=== PATIENT | female | born 1990 | race Caucasian/White ===

== ENCOUNTER 2016-07-20 21:46 | Inpatient (IN) | payer BC ==
[2016-07-20] MEDS ORDERED: NS 0.9% 1000 ML* 1,000 ML IV ONE (21:52)
[2016-07-20] MEDS ORDERED: Charcoal ACTIVATED* 25 GM/120 ML BTL PO ONE (21:52)
[2016-07-20 22:04] LABS: Hematocrit 40 % (35-47); Hemoglobin 13.1 g/dl (12.0-16.0); Mean Corpuscular HGB Conc 33 g/dl (31-36); Mean Corpuscular Hemoglobin 27 pg (27-31); Mean Corpuscular Volume 84 fL (80-97); Mean Platelet Volume 9 um3 (7.4-10.4); Red Blood Count 4.82 10^6/ul (4.0-5.4); Red Cell Distribution Width 14 % (10.5-15); White Blood Count 9.2 10^3/ul (3.5-10.8)
[2016-07-20 22:05] LABS: Add Diff/Slide Review? Slide Review Added; Comments Flag Yes
--- NOTE | 2016-07-20 22:10 | RAD ---
INDICATION: Overdose COMPARISON: None. TECHNIQUE: Single AP portable view of the chest was obtained. FINDINGS: Image quality is compromised due to the relative inferiority of a portable chest x-ray. The heart and mediastinum exhibit normal size and contour. The lungs are grossly clear. There is no evidence of a large pleural effusion. Visualized bones are normal for the patient's age. IMPRESSION: No radiographic evidence for acute cardiopulmonary abnormality on this portable chest x-ray.
[2016-07-20 22:21] LABS: ALT 9 U/L (7-52); AST 10 U/L (13-39); Albumin 3.8 g/dL (3.2-5.2); Alkaline Phosphatase 115 U/L (34-104); Anion Gap 9 mmol/L (2-11); BUN/Creatinine Ratio 15.4 (8-20); Blood Urea Nitrogen 10 mg/dL (6-24); CO2 Carbon Dioxide 22 mmol/L (22-32); Calcium 9.1 mg/dL (8.6-10.3); Chloride 104 mmol/L (101-111); Creatine Kinase 42 U/L (10-223); EGFR African American 141.7 (>60); EGFR Non-African American 110.2 (>60); Globulin 3.4 g/dL (2-4); Glucose 103 mg/dL (70-100); Potassium 3.2 mmol/L (3.5-5.0); Sodium 135 mmol/L (133-145); Total Protein 7.2 g/dL (6.4-8.9)
--- NOTE | 2016-07-20 22:32 | ED ---
I, Oh,Sorandi, scribed for Olegario Jara MD on 07/20/16 at 2209 . Substance Abuse/Use - HPI Summary HPI Summary: This 26 y/o female presents to ED for OD on approximately 800 mg of trazodone an hour and a half ago. EMT also reports that pt also may have consumed half bottle of wine along with her trazodone. Pt is alert and oriented upon arrival and able to answer oriented questions. Pt states that consumption was intentional and indicates possible SI. Charcoal was ordered immediately upon arrival. - History Of Current Complaint Stated Complaint: OVERDOSE/MHE Hx Obtained From: Patient, EMS Overdose Characteristics: Oral Timing Of Abuse: Binge Use Aggravating Factor(s): Nothing Alleviating Factor(s): Nothing Associated Signs And Symptoms: Intentional Ingestion - Allergies/Home Medications Allergies/Adverse Reactions: Allergies Allergy/AdvReac Type Severity Reaction Status Date / Time Tramadol [From Ultram] Allergy Rash Verified 07/20/16 22:06 Home Medications: Home Medications Escitalopram Oxalate [Lexapro 20 mg] 20 mg PO DAILY 07/21/16 [History Confirmed 07/21/16] Lamotrigine [Lamictal] 25 mg PO DAILY 07/21/16 [History Confirmed 07/21/16] QUEtiapine TAB* [SEROquel TAB*] 100 mg PO DAILY 07/21/16 [History Confirmed ] PMH/Surg Hx/FS Hx/Imm Hx - Family History Known Family History: Negative: Cardiac Disease - Social History Hx Substance Use: Yes Substance Use Type: Reports: Prescribed - Trazodone today Review of Systems Negative: Fever Positive: Other - EtOH on breath. Positive OD on trazodone All Other Systems Reviewed And Are Negative: Yes Physical Exam Triage Information Reviewed: Yes Vital Signs On Initial Exam: Initial Vitals Temp Pulse Resp BP Pulse Ox 97.2 F 102 14 93/57 97 07/20/16 22:05 07/20/16 22:05 07/20/16 22:05 07/20/16 22:05 07/20/16 22:05 Vital Signs Reviewed: Yes Appearance: Positive: Well-Appearing, No Pain Distress, Obese Skin: Positive: Warm Head/Face: Positive: Normal Head/Face Inspection Eyes: Positive: PAYAM ENT: Positive: Hearing grossly normal Neck: Positive: Supple Respiratory/Lung Sounds: Positive: Clear to Auscultation, Breath Sounds Present Cardiovascular: Positive: RRR Abdomen Description: Positive: Nontender, No Organomegaly, Soft Bowel Sounds: Positive: Present Musculoskeletal: Positive: Strength/ROM Intact Neurological: Positive: Sensory/Motor Intact, Normal Gait Psychiatric: Positive: Affect/Mood Appropriate Diagnostics - Vital Signs Vital Signs Temp Pulse Resp BP Pulse Ox 07/20/16 22:05 97.2 F 102 14 93/57 97 - Laboratory Lab Results: Lab Results 07/20/16 07/20/16 07/20/16 Range/Units 21:57 21:57 21:57 WBC 9.2 (3.5-10.8) 10^3/ul RBC 4.82 (4.0-5.4) 10^6/ul Hgb 13.1 (12.0-16.0) g/dl Hct 40 (35-47) % MCV 84 (80-97) fL MCH 27 (27-31) pg MCHC 33 (31-36) g/dl RDW 14 (10.5-15) % Plt Count 253 (150-450) 10^3/ul MPV 9 (7.4-10.4) um3 Neut % (Auto) 71.6 (38-83) % Lymph % (Auto) 20.2 L (25-47) % [place] % (Auto) 5.4 (1-9) % Eos % (Auto) 1.8 (0-6) % Baso % (Auto) 1.0 (0-2) % Absolute Neuts (auto) 6.6 (1.5-7.7) 10^3/ul Absolute Lymphs (auto) 1.9 (1.0-4.8) 10^3/ul Absolute Monos (auto) 0.5 (0-0.8) 10^3/ul Absolute Eos (auto) 0.2 (0-0.6) 10^3/ul Absolute Basos (auto) 0.1 (0-0.2) 10^3/ul Absolute Nucleated RBC 0 10^3/ul Nucleated RBC % 0 Sodium 135 (133-145) mmol/L Potassium 3.2 L (3.5-5.0) mmol/L Chloride 104 (101-111) mmol/L Carbon Dioxide 22 (22-32) mmol/L Anion Gap 9 (2-11) mmol/L BUN 10 (6-24) mg/dL Creatinine 0.65 (0.51-0.95) mg/dL Est GFR ( Amer) 141.7 (>60) Est GFR (Non-Af Amer) 110.2 (>60) BUN/Creatinine Ratio 15.4 (8-20) Glucose 103 H (70-100) mg/dL Lactic Acid 2.2 H* (0.5-2.0) mmol/L Calcium 9.1 (8.6-10.3) mg/dL Total Bilirubin 0.20 (0.2-1.0) mg/dL AST 10 L (13-39) U/L ALT 9 (7-52) U/L Alkaline Phosphatase 115 H (34-104) U/L Total Creatine Kinase 42 (10-223) U/L Total Protein 7.2 (6.4-8.9) g/dL Albumin 3.8 (3.2-5.2) g/dL Globulin 3.4 (2-4) g/dL Albumin/Globulin Ratio 1.1 (1-3) Salicylates Pending Acetaminophen Pending Serum Alcohol Pending Result Diagrams: 07/20/16 21:57 07/20/16 21:57 Lab Statement: Any lab studies that have been ordered have been reviewed, and results considered in the medical decision making process. - Radiology CXR Xray Interpretation: No Acute Changes Radiology Interpretation Completed By: Radiologist - EKG 2143 Cardiac Rate: NL - 84 bpm EKG Rhythm: Sinus Rhythm Re-Evaluation - Re-Evaluation First Eval Change: Improved Course/Dx - Course Assessment/Plan: Pt medically cleared for Mental Health evaluation at 0300 AM. - Diagnoses Provider Diagnoses: Overdose - Physician Notifications Instructed by Provider To: Admit As Inpatient Patient Is Medically Stable For: Psych Evaluation - at 0300 AM Discharge - Discharge Plan Condition: Fair Disposition: ADMITTED TO [facility] documentation as recorded by the Stanley camara Soohyun accurately reflects the service I personally performed and the decisions made by me, Olegario Jara MD.
[2016-07-20 22:42] LABS: Acetaminophen < 15 mcg/mL; Alcohol 63 mg/dL (<10); Salicylate < 2.50 mg/dL (<30)
[2016-07-20 23:40] LABS: Urine Bacteria 1+ (Absent); Urine Bilirubin Negative (Negative); Urine Glucose Negative (Negative); Urine Nitrite Negative (Negative)
[2016-07-21 01:10] LABS: Benzodiazepine Urine Screen None Detected (None Detect)
[2016-07-21] MEDS ORDERED: Acetaminophen TAB* 325 MG PO PRN (05:06)
[2016-07-21] MEDS ORDERED: Al Hydrox/Mg Hydrox/Simet LIQ* 30 ML UDC PO PRN (05:06)
[2016-07-21] MEDS: Citalopram TAB* 40 MG PO SCH ×2 (11:11→11:20)
[2016-07-21] MEDS: QUEtiapine TAB* 100 MG PO SCH ×2 (11:11→11:20)
[2016-07-21] MEDS: lamoTRIgine TAB(*) 25 MG PO SCH ×2 (11:11→11:20)
[2016-07-21] MEDS: Vitamin THERAPEUTIC TAB PO SCH (11:12)
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
[2016-07-21] MEDS ORDERED: hydrOXYzine HCL TAB* 50 MG PO PRN (19:30)
[2016-07-21] MEDS ORDERED: lamoTRIgine TAB(*) 25 MG PO SCH (21:00)
[2016-07-21] MEDS ORDERED: Citalopram TAB* 40 MG PO SCH (21:00)
[2016-07-21] MEDS ORDERED: QUEtiapine TAB* 100 MG PO SCH (21:00)
[2016-07-22 07:45] VITALS: BP 122/76
--- NOTE | 2016-07-22 11:37 | PN ---
MHU: Group Therapy Note - Service Type Service Type: 22443 Group Psychotherapy - Cognitive Behavioral Group Therapy ( CBT):Patient was attentive and participatory in CBT programming this morning, and remained in good behavioral control. Patient expressed positive insights regarding relevant treatment interventions and goals.
[2016-07-22] MEDS: Vitamin THERAPEUTIC TAB PO SCH (11:57)
--- NOTE | 2016-07-22 13:27 | DS ---
Subjective - Subjective Service Types: [id number] [facility] Day Mgmt complex over 30 min Discharge Date: 07/22/16 Subjective: Sneha reports feeling safe and ready for discharge today. She denies any thoughts about harming herself or others. She denies any psychotic symptoms now or ever before. She had not been aware that her boyfriend planned to leave their home as soon as she got there, that he had only been staying there to take care of her dogs. She reported being upset that she had not been told about this by him or her mother, but said she felt she would be fine there by herself, and was not upset that he would not be there. Her mother reported to me that she felt Sneha would be safe discharging today, and that she would not benefit from continued hospitalization, and would likely have a negative reaction to continued hospitalization. Objective - Appearance Appearance: Well Developed/Nourished, Obese Dysmorphic Features: No Hygiene: Normal Grooming: Fairly Well Kept - Behavior Psychomotor Activities: Normal Exhibits Abnormal Movement: No - Attitude and Relatedness Attitude and Relatedness: Cooperative Eye Contact: Good - Speech Quality: Unpressured Latencies: Normal Quantity: Appropriate - Mood Patient's Decription of Mood: "Fine" - Affect Observed Affect: Fair Affect Consistent with: Euthymia - Thought Process Patient's Thought Process: Coherent, Goal Directed Thought Content: No Passive Wish, No Suicidal Planning, No Homicidal Ideation, No Paranoid Ideation - Sensorium Experiencing Hallucinations: No, Sensorium is Clear Type of Hallucinations: Visual: No, Auditory: No, Command: No - Level of Consciousness Level of Consciousness: Alert Orientation: Yes Intact, Yes Orientated to Time, Yes Orientated to Place, Yes Orientated to Person - Impulse Control Impulse Control: Intact - Insight and Judgement Insight and Judgement: Fair - Group Participation Particating in Group Activities: Yes - Medication Management Medication Management Adherence: Yes Treatment Course & Assessment Clinical Course & Impression: Sneha Lopez is a 26-year-old, single woman who has been admitted due to an overdose on Trazodone witnessed by her boyfriend who got her into care at the [facility]. She reports the point of the overdose was to get that man's attention. She denies that there was ever any intent to be from the overdose, citing that she took the overdose in the presence of somebody who would instantly rescue her. She does report a long history of difficulties with depression with some consideration for bipolar disorder given by her current treaters, but with her report of manic symptoms insufficient to support diagnosis with type 2 bipolar disorder. She is anxious for a rapid discharge from the unit, stating that she feels distressed by being here. She reports that her mother has paid the balance of rent owed on her apartment, so that stressor is no longer in play. She would like to discharge to continued care with her [facility], Ms Raphael, and her current prescriber, Dr Bravo. She has made use of the therapeutic milieu and groups. Her mother who knows her well is in support of her discharge today. She continues to deny any thoughts of harming herself or others. She reports good mood. She report that she is sad about the end of her relationship, but that she is accepting of that. She is committed to aftercare with her therapist Sarah Raphael and her psychiatrist Dr Bravo, whom she will see on the and 03 of August respectively. She has refused referral to [facility], preferring to continue care with her current providers. Sneha is cleared for discharge. She is assessed as at no acutely increased risk of harm to self or others and capable of adequate self-care to avoid harm. She remains at mildly increased chronic risk due to her history of this overdose that she has reported as only to get attention, and due to her mood disorder. She can reduce this chronic risk by adherence to aftercare plans, including a safety plan reviewed with her by her social service director Ms Lopez. No medications were changed on this admission. She reports having had improvement in her mood disorder symptoms with an adjustment of her medications made in the last month, and wishes to continue the current medication regimen. She has voiced understanding of the need to take medications only as prescribed , and to not increase any doses. She has voiced understanding of the risk of serious rash if lamotrigine is not taken as prescribed. She reports that she has no more excess medications in her home. Merits Inpatient Hospitalization: No Clear for Discharge: Adequate Clinical Respons, Acceptable Safety Profile, Low Utility of Inpt Care Inpatient DSM-IV Dx: Unspecified bipolar affective disorder, rule out alcohol use disorder, cluster B traits. - [place] I Mental Illness: Unspecified bipolar affective disorder, rule-out alcohol use disorder - [place] II MR and Personality Disorder: Cluster B traits - [place] III Medical Illness: Asthma. History of two traumatic brain injuries. Had a laparoscopic investigation of abdominal pain in 2008 and some tissue binding her intestines was removed; also, an appendectomy was done. - [place] IV Stressors: eviction, end of romantic relationship Family: supportive mother Primary Support Group: mother, ex-boyfriend - [place] V DNR-[id number]-Cveeb: 65 Estimate of Highest-Past Year: 70 Discharge Planning - Discharge Planning Discharge Plan: Outpatient Follow Up Outpatient Program: [facility] Recommendations for Continuing Care: Medication Management, Psychotherapy Medications: Replace: Citalopram Hydrobromide (Celexa Tab*) 40 mg PO DAILY@2099 [facility] Last Admin: 07/21/16 20:38 Dose: 40 mg with Lexapro 20 mg daily Lamotrigine (Lamictal Tab(*)) 25 mg PO DAILY@2099 [facility] Last Admin: 07/21/16 20:38 Dose: 25 mg Quetiapine Fumarate (Seroquel Tab*) 100 mg PO DAILY@2099 [facility] Last Admin: 07/21/16 20:38 Dose: 100 mg She reports a good supply of all medications at home on prescription from her Discharge Planning: Prescriptions provided for discharge [] Yes [x] No : as she reports a good supply on hand of all medications at home from outpatient prescribers Follow up care details as per social work arrangements. Patient response to discharge plan: [x] eager for discharge [x] agreeable with discharge plan [] ambivalent about discharge [] disagrees with discharge today
== END 2016-07-22 16:25 | disposition home or self-care (01) | DRG 753 ==
LOC: ED 21:46 → BSU 07-21 05:01
PROVIDERS: ADMIT Psychiatry & Neurology Psychiatry; ATTEND Psychiatry & Neurology Psychiatry
DX: F31.9 Bipolar disorder, unspecified (principal); Z68.42 Body mass index [BMI] 45.0-49.9, adult; T43.212A Poisoning by selective serotonin and norepinephrine reuptake inhibitors, intentional self-harm, initial encounter; E66.01 Morbid (severe) obesity due to excess calories; J45.909 Unspecified asthma, uncomplicated; X58.XXXA Exposure to other specified factors, initial encounter; Y92.009 Unspecified place in unspecified non-institutional (private) residence as the place of occurrence of the external cause; Z87.820 Personal history of traumatic brain injury; Z81.8 Family history of other mental and behavioral disorders; Z79.899 Other long term (current) drug therapy
CPT/HCPCS: 36415; 71010; 80053; 80307; 80320; 80329; 81003; 81015; 82550; 83605; 85025; 87086; 90853; 93005; 99222; 99238; A9270-GY; G0480

== ENCOUNTER 2016-07-30 23:06 | Emergency (ER) | payer BC ==
[2016-07-31] MEDS ORDERED: Dexamethasone IV* 4 MG/ML 1 ML (4 MG) IM ONE (00:03)
[2016-07-31] MEDS ORDERED: diPHENhydraMINE PO* 50 MG PO ONE (00:03)
--- NOTE | 2016-07-31 00:20 | ED ---
Skin Complaint - HPI Summary HPI Summary: Patient presents to ED with CC of diffuse rash over arms, neck and chest since this afternoon. She had a similar episode last year which lasted 5 days, multiple providers and visits before the rash improved with decadron. Prior to this she was given prednisone and benadryl without relief. The rash had progressively worsened until she developed swollen eyes and diffuse edema in the face. After decadron, her symptoms had improved and had not returned until today. She notes to the same rash. The rash is pruritic confluent erythematous papules without a central pustule with some convalescing in a patch to resemble a hive. Denies diabetes or other significant health history. She is not seen regularly by a mustanger. - History of Current Complaint Chief Complaint: EDRashSkinAbscess Time Seen by Provider: 07/30/16 23:35 Stated Complaint: RASH Hx Obtained From: Patient Onset/Duration: Started Hours Ago Skin Exposure Onset/Duration: Hours Ago Timing: Constant Onset Severity: Mild Current Severity: Mild Pain Intensity: 0 Pain Scale Used: 0-10 Numeric Skin Location: Diffuse, Neck, Chest, Abdomen Aggravating Symptom(s): Nothing Alleviating Symptom(s): Nothing - Additional Pertinent History Primary Care Physician: [id number] - Allergy/Home Medications Allergies/Adverse Reactions: Allergies Allergy/AdvReac Type Severity Reaction Status Date / Time Tramadol [From [facility]] Allergy Rash Verified 07/30/16 23:07 PMH/Surg Hx/FS Hx/Imm Hx Previously Healthy: Yes Respiratory History: Reports: Hx Asthma Sensory History: Denies: Hx Contacts or Glasses, Hx Hearing Aid Opthamlomology History: Denies: Hx Contacts or Glasses Neurological History: Reports: Hx Headaches Psychiatric History: Reports: Hx Eating Disorder - Immunization History Hx Pertussis Vaccination: No Immunizations Up to Date: Unable to Obtain/Confirm Infectious Disease History: No Infectious Disease History: Denies: Traveled Outside the [place] in Last 30 Days - Family History Known Family History: Negative: Cardiac Disease - Social History Occupation: Employed Full-time Lives: Alone Alcohol Use: Unknown Hx Substance Use: Yes Substance Use Type: Reports: Prescribed Smoking Status (MU): Never Smoked Tobacco Review of Systems Constitutional: Negative Eyes: Negative Cardiovascular: Negative Respiratory: Negative Positive: no symptoms reported, see HPI Musculoskeletal: Negative Positive: Rash Neurological: Negative Psychological: Normal All Other Systems Reviewed And Are Negative: Yes Physical Exam Triage Information Reviewed: Yes Vital Signs On Initial Exam: Initial Vitals Temp Pulse Resp BP Pulse Ox 98.9 F 76 18 143/83 98 07/30/16 23:08 07/30/16 23:08 07/30/16 23:08 07/30/16 23:08 07/30/16 23:08 Vital Signs Reviewed: Yes Appearance: Positive: Well-Appearing, Well-Nourished Skin: Positive: Warm, Skin Color Reflects Adequate Perfusion, Other - pruritic confluent erythematous papules without a central pustule with some convalescing in a patch to resemble a hive. Head/Face: Positive: Normal Head/Face Inspection Eyes: Positive: EOMI, PAYAM, Conjunctiva Clear Neck: Positive: Supple, No Lymphadenopathy Respiratory/Lung Sounds: Positive: Clear to Auscultation, Breath Sounds Present Cardiovascular: Positive: Normal, RRR Musculoskeletal: Positive: Normal, Strength/ROM Intact Neurological: Positive: Alert, Oriented to Person Place, Time, Speech Normal Psychiatric: Positive: Normal Diagnostics - Vital Signs Vital Signs Temp Pulse Resp BP Pulse Ox 07/30/16 23:08 98.9 F 76 18 143/83 98 - Laboratory Lab Statement: Any lab studies that have been ordered have been reviewed, and results considered in the medical decision making process. Course/Dx - Course Course Of Treatment: Patient presents with CC of pruritic confluent erythematous papules without a central pustule with some convalescing in a patch to resemble a hive. Similar symptoms last year which was treated with prednisone. She was seen at who stated they would only give her prednisone and benadryl. She was requesting decadron but did not receive it. I have explained to the patient we do not normally given decadron for a minor rash, but d/t her history last year of worsneing symptoms until she received the decadron, she is given 4mg IM in ED and observed for 20 minutes. She is also given Benadryl as it has been 6 hours since last dose of 25mg. She is to return if symptoms worsen. Follow up with [facility]. - Differential Diagnoses - Skin Complaint Differential Diagnoses: Anaphylaxis, Angioedema, Contact Dermatitis, Urticaria - Diagnoses Provider Diagnoses: Diffuse urticaria Discharge - Discharge Plan Condition: Stable Disposition: HOME Patient Education Materials: Acute Rash (ED) Referrals: Silviano Pires MD [Primary Care Provider] - Additional Instructions: Follow up with mustanger Call Dr. India Eaton MD for appt I cannot refer you since she is not in our network, but they should be able to see you soon. If symptoms become worse or you develop throat pain or difficulty swallowing or breathing, come back to ED immediately.
[2016-07-31 00:30] VITALS: BP 131/77
== END 2016-07-31 00:29 | disposition home or self-care (01) ==
LOC: ED 23:06
DX: L50.9 Urticaria, unspecified (principal); R21 Rash and other nonspecific skin eruption
CPT/HCPCS: 96374; 99282; A9270-GY; J1100

== ENCOUNTER 2016-08-01 10:42 | Emergency (ER) | payer BC ==
[2016-08-01 10:53] VITALS: BP 141/85
[2016-08-01] MEDS ORDERED: diPHENhydraMINE IV* 50 MG/ML 1 ml VIAL (BENADRYL) IV ONE (11:05)
[2016-08-01] MEDS ORDERED: Dexamethasone IV* 4 MG/ML 5 ML VIAL (20 MG) IVPB ONE (11:05)
[2016-08-01] MEDS ORDERED: Famotidine IV* 10 MG/ML 2 ML (20 mg) IV ONE (11:05)
[2016-08-01] MEDS ORDERED: NS 0.9% 1000 ML* 1,000 ML IV SCH (11:15)
[2016-08-01] MEDS ORDERED: Famotidine IV* 10 MG/ML 2 ML (20 mg) ONE (11:21)
[2016-08-01 11:39] LABS: Hematocrit 42 % (35-47); Hemoglobin 13.6 g/dl (12.0-16.0); Mean Corpuscular HGB Conc 33 g/dl (31-36); Mean Corpuscular Hemoglobin 27 pg (27-31); Mean Corpuscular Volume 83 fL (80-97); Mean Platelet Volume 9 um3 (7.4-10.4); Red Blood Count 4.98 10^6/ul (4.0-5.4); Red Cell Distribution Width 14 % (10.5-15); White Blood Count 9.2 10^3/ul (3.5-10.8)
[2016-08-01 11:56] LABS: ALT 6 U/L (7-52); AST 8 U/L (13-39); Albumin 3.8 g/dL (3.2-5.2); Alkaline Phosphatase 93 U/L (34-104); Anion Gap 11 mmol/L (2-11); BUN/Creatinine Ratio 16.9 (8-20); Blood Urea Nitrogen 13 mg/dL (6-24); C Reactive Protein 9.01 mg/L (< 5.00); CO2 Carbon Dioxide 21 mmol/L (22-32); Calcium 8.9 mg/dL (8.6-10.3); Chloride 106 mmol/L (101-111); Creatine Kinase 24 U/L (10-223); EGFR African American 116.5 (>60); EGFR Non-African American 90.6 (>60); Globulin 2.9 g/dL (2-4); Glucose 98 mg/dL (70-100); Lipase 17 U/L (11.0-82.0); Magnesium 1.9 mg/dL (1.9-2.7); Potassium 3.3 mmol/L (3.5-5.0); Sodium 138 mmol/L (133-145); Total Protein 6.7 g/dL (6.4-8.9)
[2016-08-01 12:29] LABS: Erythrocyte Sed Rate 10 mm/Hr (0-14)
[2016-08-01 13:47] LABS: Urine Bacteria Absent (Absent); Urine Bilirubin Negative (Negative); Urine Glucose Negative (Negative); Urine Nitrite Negative (Negative)
--- NOTE | 2016-08-01 14:08 | ED ---
Yosvany Rogers Rebecca, scribed for Jayme Garcia MD on 08/01/16 at 1058 . Allergic Reaction/Systemic - HPI Summary HPI Summary: This patient is a 26 year old F presenting to [facility] for an allergic reaction which suddenly began 2 days ago. Current sx characterized as a rash that began behind her ears and neck, spreading to the face, wrists, and bilateral thighs. Rash is described as pruritic and painful. She currently ranks associated pain as 6/10. Sx aggravated by nothing, alleviated by Decadron, unchanged by Benadryl and Prednisone. She additionally c/o palpitations last night. She recently started on lamictal, but stopped taking it yesterday after consulting with her psychiatrist. She had experienced similar sx 1.5 years ago for which she was "in and out of hospitals." - History of Current Complaint Chief Complaint: EDAllergicReaction Time Seen by Provider: 08/01/16 10:54 Hx Obtained From: Patient Onset/Duration: Sudden Onset, Started days ago - 2, Still Present Timing: Constant Severity Initially: Moderate Severity Currently: Moderate Pain Intensity: 6 Pain Scale Used: 0-10 Numeric Location: Diffuse Character: Pruritus, Pain Aggravating Factor(s): Nothing Alleviating Factor(s): Other - Decadron Associated Signs And Symptoms: Positive: Rash, Other: - Palpitations - Allergies/Home Medications Allergies/Adverse Reactions: Allergies Allergy/AdvReac Type Severity Reaction Status Date / Time Tramadol [From Ultram] Allergy Rash Verified 07/30/16 23:07 PMH/Surg Hx/FS Hx/Imm Hx Respiratory History: Reports: Hx Asthma Sensory History: Denies: Hx Contacts or Glasses, Hx Hearing Aid Opthamlomology History: Denies: Hx Contacts or Glasses Neurological History: Reports: Hx Headaches Psychiatric History: Reports: Hx Eating Disorder Infectious Disease History: No Infectious Disease History: Denies: Traveled Outside the [place] in Last 30 Days - Family History Known Family History: Negative: Cardiac Disease - Social History Alcohol Use: Unknown Hx Substance Use: Yes Substance Use Type: Reports: Prescribed Smoking Status (MU): Never Smoked Tobacco Review of Systems Positive: Palpitations - last night Positive: Rash - diffuse pain and pruritis All Other Systems Reviewed And Are Negative: Yes Physical Exam - Summary Physical Exam Summary: Gen: well-appearing, no pain distress Skin: diffuse rash on neck, facial blanching, and scattered patches of rash 2cm in diameter on her body Head: normal Eyes: EOMI, PAYAM ENT: normal Neck: supple, nontender Resp: CTA, breath sounds present Cardio: RRR Abd: soft, nontender Bowel: present Musc: normal, strength/ROM intact Neuro: normal, sensory/motor intact, A&O x3 Psych: affect/mood appropriate Triage Information Reviewed: Yes Vital Signs On Initial Exam: Initial Vitals Temp Pulse Resp BP Pulse Ox 99.2 F 80 19 141/85 96 08/01/16 10:43 08/01/16 10:43 08/01/16 10:43 08/01/16 10:43 08/01/16 10:43 Vital Signs Reviewed: Yes Diagnostics - Vital Signs Vital Signs Temp Pulse Resp BP Pulse Ox 08/01/16 10:46 99.2 F 89 17 141/85 96 08/01/16 10:43 99.2 F 80 19 141/85 96 - Laboratory Lab Results: Lab Results 08/01/16 08/01/16 08/01/16 Range/Units 11:26 11:26 11:26 WBC 9.2 (3.5-10.8) 10^3/ul RBC 4.98 (4.0-5.4) 10^6/ul Hgb 13.6 (12.0-16.0) g/dl Hct 42 (35-47) % MCV 83 (80-97) fL MCH 27 (27-31) pg MCHC 33 (31-36) g/dl RDW 14 (10.5-15) % Plt Count 254 (150-450) 10^3/ul MPV 9 (7.4-10.4) um3 Neut % (Auto) 53.8 (38-83) % Lymph % (Auto) 38.7 (25-47) % Lincoln % (Auto) 6.4 (1-9) % Eos % (Auto) 0.4 (0-6) % Baso % (Auto) 0.7 (0-2) % Absolute Neuts (auto) 5.0 (1.5-7.7) 10^3/ul Absolute Lymphs (auto) 3.6 (1.0-4.8) 10^3/ul Absolute Monos (auto) 0.6 (0-0.8) 10^3/ul Absolute Eos (auto) 0 (0-0.6) 10^3/ul Absolute Basos (auto) 0.1 (0-0.2) 10^3/ul Absolute Nucleated RBC 0.01 10^3/ul Nucleated RBC % 0.1 ESR 10 (0-14) mm/Hr INR (Anticoag Therapy) 0.96 (0.89-1.11) APTT 27.7 (26.0-36.3) seconds Sodium 138 (133-145) mmol/L Potassium 3.3 L (3.5-5.0) mmol/L Chloride 106 (101-111) mmol/L Carbon Dioxide 21 L (22-32) mmol/L Anion Gap 11 (2-11) mmol/L BUN 13 (6-24) mg/dL Creatinine 0.77 (0.51-0.95) mg/dL Est GFR ( Amer) 116.5 (>60) Est GFR (Non-Af Amer) 90.6 (>60) BUN/Creatinine Ratio 16.9 (8-20) Glucose 98 (70-100) mg/dL Lactic Acid (0.5-2.0) mmol/L Calcium 8.9 (8.6-10.3) mg/dL Magnesium 1.9 (1.9-2.7) mg/dL Total Bilirubin 0.40 (0.2-1.0) mg/dL AST 8 L (13-39) U/L ALT 6 L (7-52) U/L Alkaline Phosphatase 93 (34-104) U/L Total Creatine Kinase 24 (10-223) U/L C-Reactive Protein 9.01 H (< 5.00) mg/L Total Protein 6.7 (6.4-8.9) g/dL Albumin 3.8 (3.2-5.2) g/dL Globulin 2.9 (2-4) g/dL Albumin/Globulin Ratio 1.3 (1-3) Lipase 17 (11.0-82.0) U/L Beta HCG, Quant < 0.60 mIU/mL Urine Color Urine Appearance Urine pH (5-9) Ur Specific [place] (1.010-1.030) Urine Protein (Negative) Urine Ketones (Negative) Urine Blood (Negative) Urine Nitrate (Negative) Urine Bilirubin (Negative) Urine Urobilinogen (Negative) Ur Leukocyte Esterase (Negative) Urine WBC (Auto) (Absent) Urine RBC (Auto) (Absent) Ur Squamous Epith Cells (Absent) Urine Bacteria (Absent) Urine Glucose (Negative) 08/01/16 08/01/16 Range/Units 11:26 13:14 WBC (3.5-10.8) 10^3/ul RBC (4.0-5.4) 10^6/ul Hgb (12.0-16.0) g/dl Hct (35-47) % MCV (80-97) fL MCH (27-31) pg MCHC (31-36) g/dl RDW (10.5-15) % Plt Count (150-450) 10^3/ul MPV (7.4-10.4) um3 Neut % (Auto) (38-83) % Lymph % (Auto) (25-47) % Lincoln % (Auto) (1-9) % Eos % (Auto) (0-6) % Baso % (Auto) (0-2) % Absolute Neuts (auto) (1.5-7.7) 10^3/ul Absolute Lymphs (auto) (1.0-4.8) 10^3/ul Absolute Monos (auto) (0-0.8) 10^3/ul Absolute Eos (auto) (0-0.6) 10^3/ul Absolute Basos (auto) (0-0.2) 10^3/ul Absolute Nucleated RBC 10^3/ul Nucleated RBC % ESR (0-14) mm/Hr INR (Anticoag Therapy) (0.89-1.11) APTT (26.0-36.3) seconds Sodium (133-145) mmol/L Potassium (3.5-5.0) mmol/L Chloride (101-111) mmol/L Carbon Dioxide (22-32) mmol/L Anion Gap (2-11) mmol/L BUN (6-24) mg/dL Creatinine (0.51-0.95) mg/dL Est GFR ( Amer) (>60) Est GFR (Non-Af Amer) (>60) BUN/Creatinine Ratio (8-20) Glucose (70-100) mg/dL Lactic Acid 1.1 (0.5-2.0) mmol/L Calcium (8.6-10.3) mg/dL Magnesium (1.9-2.7) mg/dL Total Bilirubin (0.2-1.0) mg/dL AST (13-39) U/L ALT (7-52) U/L Alkaline Phosphatase (34-104) U/L Total Creatine Kinase (10-223) U/L C-Reactive Protein (< 5.00) mg/L Total Protein (6.4-8.9) g/dL Albumin (3.2-5.2) g/dL Globulin (2-4) g/dL Albumin/Globulin Ratio (1-3) Lipase (11.0-82.0) U/L Beta HCG, Quant mIU/mL Urine Color Audra Urine Appearance Cloudy Urine pH 5.0 (5-9) Ur Specific [place] 1.034 H (1.010-1.030) Urine Protein 2+(100 mg/dl) H (Negative) Urine Ketones Negative (Negative) Urine Blood Negative (Negative) Urine Nitrate Negative (Negative) Urine Bilirubin Negative (Negative) Urine Urobilinogen Negative (Negative) Ur Leukocyte Esterase Trace H (Negative) Urine WBC (Auto) 1+(6-10/hpf) H (Absent) Urine RBC (Auto) Absent (Absent) Ur Squamous Epith Cells Present H (Absent) Urine Bacteria Absent (Absent) Urine Glucose Negative (Negative) Result Diagrams: 17 11:26 [id number] 11:26 Lab Statement: Any lab studies that have been ordered have been reviewed, and results considered in the medical decision making process. Re-Evaluation - Re-Evaluation First Eval Re-Evaluation Time: 14:04 Change: Improved Comment: Discussed lab results with pt. Her rash is still present, though it has significantly diminished. Allergic Reaction Course/Dx - Course Course Of Treatment: A 26 year-old F presents to the ED with a CC of diffuse, painful, pruritic rash for 2 days. Last night she experienced palapations. Decadron, Pepcid, Benadryl given by IV in the course of the ED. IMPROVED IN ED. RX DECADRON 10MG PO X 4 DAYS. DISCHARGE HOME STABLE. Assessment/Plan: NO CRITICAL CARE TIME - Diagnoses Provider Diagnoses: Allergic reaction Discharge - Discharge Plan Condition: Stable Disposition: HOME Prescriptions: Dexamethasone Oral Solution* [Decadron Oral Solution*] 10 mg PO DAILY #40 ml Patient Education Materials: Allergies (ED) Referrals: Silviano Pires MD [Primary Care Provider] - Additional Instructions: FOLLOW UP WITH YOUR DOCTOR. RETURN TO THE EMERGENCY DEPARTMENT FOR ANY WORSENING OF YOUR CONDITION OR QUESTIONS OR CONCERNS. The documentation as recorded by the Yosvany camara Rebecca accurately reflects the service I personally performed and the decisions made by me, Jayme Garcia MD.
== END 2016-08-01 15:01 | disposition home or self-care (01) ==
LOC: ED 10:42
DX: L27.0 Generalized skin eruption due to drugs and medicaments taken internally (principal); R00.2 Palpitations; T42.6X5A Adverse effect of other antiepileptic and sedative-hypnotic drugs, initial encounter; Y92.9 Unspecified place or not applicable; Z32.02 Encounter for pregnancy test, result negative; J45.909 Unspecified asthma, uncomplicated; Z88.5 Allergy status to narcotic agent
CPT/HCPCS: 36415; 80053; 81003; 81015; 82550; 83605; 83690; 83735; 84702; 85025; 85610; 85652; 85730; 86140; 87086; 96361; 96365; 96375; 99283; J1200

== ENCOUNTER → 2016-08-12 19:40 | Emergency (ER) | payer BC ==
[~2016-08-12 19:40] MED LIST: Famotidine IV* 10 MG/ML 2 ML (20 mg) IV SLOW PU ONE; Ondansetron INJ* 2 MG/ML VIAL IV ONE; diPHENhydraMINE IV* 50 MG/ML 1 ml VIAL (BENADRYL) IV ONE; methylPREDNISolone 125 MG* 2 ML VIAL IV ONE
--- NOTE | 2016-08-12 20:28 | ED ---
Rod Rogers Claudia, scribed for Olegario Jara MD on 08/12/16 at 2010 . Allergic Reaction/Systemic - HPI Summary HPI Summary: 26 year old female presents to the ED with an allergic rxn. Pt states that she was laying in her bed when the Sx suddenly started minutes before coming to the ED. Pt states facial swelling/rash, throat numbness, nausea and difficulty breathing. She states similar Sx aout a year ago when she was having an allergic rxn. She states that on July 30 she began having an allergic rxn to what they think was her medications so she stopped taking them and her Sx just began to resolve until today. She notes that her hot end operator thought it was her medications giving her these rxn, however she has not seen an chief engineer waterworks in a year. Pt states she did not take anything for the rxn prior to coming to the ED. She denies any alleviating or aggravating factors. - History of Current Complaint Chief Complaint: EDRespiratoryDistress Time Seen by Provider: 08/12/16 20:02 Hx Obtained From: Patient Onset/Duration: Sudden Onset, Started minutes ago Timing: Constant Pain Intensity: 8 Pain Scale Used: 0-10 Numeric Character: Swelling Aggravating Factor(s): Nothing Alleviating Factor(s): Nothing Associated Signs And Symptoms: Positive: Difficulty Breathing, Nausea, Rash, Other: - throat numbness - Allergies/Home Medications Allergies/Adverse Reactions: Allergies Allergy/AdvReac Type Severity Reaction Status Date / Time Lamotrigine [From Lamictal] Allergy Rash Verified 08/12/16 21:12 Tramadol [From Ultram] Allergy Rash Verified 08/12/16 21:11 PMH/Surg Hx/FS Hx/Imm Hx Previously Healthy: Yes Respiratory History: Reports: Hx Asthma Sensory History: Denies: Hx Contacts or Glasses, Hx Hearing Aid Opthamlomology History: Denies: Hx Contacts or Glasses Neurological History: Reports: Hx Headaches Psychiatric History: Reports: Hx Eating Disorder Infectious Disease History: Denies: Traveled Outside the [place] in Last 30 Days - Family History Known Family History: Negative: Cardiac Disease Family History: Depression, Anxiety - Social History Occupation: Employed Full-time Lives: Alone Alcohol Use: Unknown Hx Substance Use: Yes Substance Use Type: Reports: Prescribed Smoking Status (MU): Never Smoked Tobacco Review of Systems Constitutional: Negative Negative: Fever, Chills Eyes: Negative ENT: Negative Cardiovascular: Negative Positive: Shortness Of Breath, Other - throat numbness Positive: Nausea Genitourinary: Negative Musculoskeletal: Negative Positive: Rash Neurological: Negative Psychological: Normal All Other Systems Reviewed And Are Negative: Yes Physical Exam Triage Information Reviewed: Yes Vital Signs On Initial Exam: Initial Vitals Temp Pulse Resp BP Pulse Ox 99.8 F 95 24 142/95 98 08/12/16 19:44 08/12/16 19:44 08/12/16 19:44 08/12/16 19:44 08/12/16 19:44 Vital Signs Reviewed: Yes Appearance: Positive: Well-Appearing, No Pain Distress Skin: Positive: Warm, Other - erythematous face Eyes: Positive: PAYAM ENT: Positive: Pharynx normal Neck: Positive: Supple, Nontender Respiratory/Lung Sounds: Positive: Clear to Auscultation, Breath Sounds Present Cardiovascular: Positive: RRR Abdomen Description: Positive: Nontender, Soft Bowel Sounds: Positive: Present Musculoskeletal: Positive: Strength/ROM Intact Neurological: Positive: Alert, Oriented to Person Place, Time Diagnostics - Vital Signs Vital Signs Temp Pulse Resp BP Pulse Ox 08/12/16 19:44 99.8 F 95 24 142/95 98 - Laboratory Lab Statement: Any lab studies that have been ordered have been reviewed, and results considered in the medical decision making process. Re-Evaluation - Re-Evaluation First Eval Re-Evaluation Time: 21:46 Change: Improved - Pt is improved and is ready to be d/c home. Allergic Reaction Course/Dx - Course Assessment/Plan: MDM: After diphenhydramine, methylprednisone, ondansetron and famotidine and observation pt is improved and is ready to be d/c home with follow-up instructions with chief engineer waterworks. - Diagnoses Provider Diagnoses: Acute allergic reaction Discharge - Discharge Plan Condition: Improved Disposition: HOME Prescriptions: Famotidine TAB* [Pepcid 20 MG TAB*] 20 mg PO BID #20 tab diPHENhydraMINE PO* [Benadryl PO 25 MG TAB*] 25 mg PO Q6H #20 tab predniSONE TAB* [Deltasone TAB*] 40 mg PO DAILY #8 tab Patient Education Materials: General Allergic Reaction (ED), Famotidine (By mouth), Prednisone (By mouth), Diphenhydramine (By mouth) Referrals: [facility] [Provider Group] - 2 Days The documentation as recorded by the Rod camara Claudia accurately reflects the service I personally performed and the decisions made by me, Olegario Jara MD.
[2016-08-12 23:03] VITALS: BP 124/63
== END | disposition home or self-care (01) ==
LOC: ED 19:40
DX: T78.40XA Allergy, unspecified, initial encounter (principal); R06.2 Wheezing; R11.0 Nausea; R21 Rash and other nonspecific skin eruption; X58.XXXA Exposure to other specified factors, initial encounter
CPT/HCPCS: 96374; 96375; 99283; J1200; J2405; J2930

== ENCOUNTER 2017-02-05 11:37 | Emergency (ER) | payer BC ==
--- NOTE | 2017-02-05 13:16 | UC ---
Throat Pain/Nasal Keo HPI - HPI Summary HPI Summary: Dizziness diarrhea and sore throat for one week - History of Current Complaint Chief Complaint: UCAbdominalPain Stated Complaint: DIZZY,DIARRHEA Time Seen by Provider: 02/05/17 13:12 Hx Obtained From: Patient Hx Last Menstrual Period: 12/30/16 ?: No Onset/Duration: Gradual Onset, Lasting Days - 7, Still Present Severity: Mild Cough: None Associated Signs & Symptoms: Positive: Other - sore throat earlier in the week, episodes of diarrhea, feeling weak and dizzy when she works - Allergies/Home Medications Allergies/Adverse Reactions: Allergies Allergy/AdvReac Type Severity Reaction Status Date / Time Lamotrigine [From Lamictal] Allergy Rash Verified 02/05/17 11:43 Tramadol [From Ultram] Allergy Rash Verified 02/05/17 11:43 PMH/Surg Hx/FS Hx/Imm Hx Previously Healthy: No Psychological History: Depression - Surgical History Surgical History: Yes Surgery Procedure, Year, and Place: laparoscopy - Family History Known Family History: Negative: Cardiac Disease Family History: Depression, Anxiety - Social History Occupation: Employed Full-time Lives: With Family Alcohol Use: Occasionally Substance Use Type: None Smoking Status (MU): Never Smoked Tobacco - Immunization History Most Recent Influenza Vaccination: Unknown Most Recent Pneumonia Vaccination: Unknown Review of Systems Constitutional: Fatigue Skin: Negative Eyes: Negative ENT: Sore Throat - earlier in the week Respiratory: Negative Cardiovascular: Negative Gastrointestinal: Diarrhea, Nausea Genitourinary: Negative Motor: Negative Neurovascular: Negative Musculoskeletal: Negative Neurological: Negative Psychological: Negative Is Patient Immunocompromised?: No All Other Systems Reviewed And Are Negative: Yes Physical Exam Triage Information Reviewed: Yes Appearance: Well-Appearing, Well-Nourished, Obese Vital Signs: Initial Vital Signs Temp 97.3 F 02/05/17 11:44 Pulse 80 02/05/17 11:44 Resp 18 02/05/17 11:44 BP 143/83 02/05/17 11:44 Pulse Ox 100 02/05/17 11:44 Vital Signs Reviewed: Yes Eye Exam: Normal Eyes: Positive: Conjunctiva Clear ENT Exam: Normal ENT: Positive: Normal ENT inspection, Hearing grossly normal, Pharynx normal, TMs normal, Uvula midline. Negative: Nasal congestion, Nasal drainage, Tonsillar swelling, Tonsillar exudate, Trismus, Muffled voice, Hoarse voice, Dental tenderness, Sinus tenderness Dental Exam: Normal Neck exam: Normal Neck: Positive: Supple, Nontender Respiratory Exam: Normal Respiratory: Positive: Chest non-tender, Lungs clear, Normal breath sounds, No respiratory distress, No accessory muscle use Cardiovascular Exam: Normal Cardiovascular: Positive: RRR, No Murmur, Pulses Normal, Brisk Capillary Refill Abdominal Exam: Normal Abdomen Description: Positive: Nontender, No Organomegaly, Soft. Negative: CVA Tenderness (R), CVA Tenderness (L) Bowel Sounds: Positive: Present Musculoskeletal Exam: Normal Musculoskeletal: Positive: Strength Intact, ROM Intact, No Edema Neurological Exam: Normal Neurological: Positive: Alert, Muscle Tone Normal Psychological Exam: Normal Skin Exam: Normal Diagnostics - Laboratory Diagnostic Studies Completed/Ordered: sg 1.020, upreg (-) Throat Pain/Nasal Course/Dx - Course Assessment/Plan: Stop Seroquel, Zofran prn increase fluids, rest follow with pcp - Differential Dx/Diagnosis Provider Diagnoses: Viral illness Discharge - Discharge Plan Condition: Stable Disposition: HOME Prescriptions: Ondansetron ODT TAB* [Zofran 4 MG Odt TAB*] 4 mg PO Q6H PRN #6 tab.odt PRN Reason: nausea Patient Education Materials: Acute Nausea and Vomiting (ED), Acute Diarrhea (ED ), Viral Syndrome (ED), Nutrition Tips for Relief of Diarrhea (ED) Forms: *Work Release Referrals: Silviano Pires MD [Primary Care Provider] - 3 Days
[2017-02-05 13:39] VITALS: BP 120/78
[2017-02-05] MEDS ORDERED: Ondansetron ODT TAB* 4 MG PO ONE (13:39)
== END 2017-02-05 13:50 | disposition home or self-care (01) ==
LOC: UCEAST 11:37
DX: B34.9 Viral infection, unspecified (principal); R53.83 Other fatigue; Z32.02 Encounter for pregnancy test, result negative; F32.9 Major depressive disorder, single episode, unspecified; E66.9 Obesity, unspecified
CPT/HCPCS: 81003; 84702; 87086; 99212; A9270-GY; G0463

== ENCOUNTER 2017-02-08 15:24 | Emergency (ER) | payer BC ==
[2017-02-08 15:34] VITALS: BP 135/70
[2017-02-08] MEDS ORDERED: Meclizine TAB* 12.5 MG PO ONE (16:32)
--- NOTE | 2017-02-08 16:42 | UC ---
Yoko Rogers Gabriel, scribed for Morales Humphrey MD on 02/08/17 at 1632 . Dizzy HPI HPI Summary: This patient is a 26 year old F presenting to [facility] with a chief complaint of dizziness since a week ago. She was previously seen at last week for dizziness and diarrhea. The dizziness has increased but the diarrhea ceased. Pt describes the dizziness as the room spinning and feeling off balance during episodes of vertigo, which makes it difficult to walk at times. Symptoms aggravated by moving eyes and head. The patient reports that over the past two weeks she has had pain in the right ear. Patient reports burning rash on elbows on wednesday, but reports it has resolved. Patient denies NG, vision changes, speech changes, rhinorrhea, nasal congestion, unilateral weakness and numbness. - History Of Current Complaint Chief Complaint: UCDizziness Stated Complaint: DIZZINESS Time Seen by Provider: 02/08/17 16:21 Hx Obtained From: Patient Hx Last Menstrual Period: 01/15 Onset/Duration: Lasting Weeks - 1, Still Present Timing: Constant Pain Intensity: 0 Pain Scale Used: 0-10 Numeric Character: Room Spinning, Dizzy Aggravating Factor(s): Change In Head Position Associated Signs And Symptoms: Positive: Negative - NG, vision changes, speech changes, ear pressure, rhinorrhea, nasal congestion, unilateral weakness and numbness. - Allergies/Home Medications Allergies/Adverse Reactions: Allergies Allergy/AdvReac Type Severity Reaction Status Date / Time Lamotrigine [From Lamictal] Allergy Rash Verified 02/05/17 11:43 Tramadol [From Ultram] Allergy Rash Verified 02/05/17 11:43 PMH/Surg Hx/FS Hx/Imm Hx Previously Healthy: Yes Respiratory History: Asthma - Surgical History Surgical History: Yes Surgery Procedure, Year, and Place: laparoscopy - Family History Known Family History: Positive: Unknown - Pt was adopted, Cardiac Disease Family History: Depression, Anxiety - Social History Occupation: Employed Full-time Alcohol Use: Occasionally Substance Use Type: None Smoking Status (MU): Never Smoked Tobacco - Immunization History Most Recent Influenza Vaccination: Unknown Most Recent Pneumonia Vaccination: Unknown Review of Systems Skin: Rash - on elbows Gastrointestinal: Nausea Neurological: Other - dizziness All Other Systems Reviewed And Are Negative: Yes Physical Exam Triage Information Reviewed: Yes Appearance: Well-Appearing, No Pain Distress, Obese Vital Signs: Initial Vital Signs Temp 97.9 F 02/08/17 15:31 Pulse 78 02/08/17 15:31 Resp 18 02/08/17 15:31 BP 135/70 02/08/17 15:31 Pulse Ox 100 02/08/17 15:31 Eyes: Positive: Conjunctiva Clear ENT: Positive: Pharynx normal, TM dull - right, TM red - right with loss of light reflex and small effusion Neck: Positive: Nontender, No Lymphadenopathy Respiratory: Positive: Chest non-tender, Lungs clear, Normal breath sounds Cardiovascular: Positive: RRR, No Murmur Abdomen Description: Positive: Nontender Musculoskeletal: Positive: Strength Intact, ROM Intact Neurological: Positive: Alert, Muscle Tone Normal, Other: - cn 2-12 grossly intact, strength 5/5 througout, sensory grossly intact, finger to nose smooth, gait stead without ataxia. Her symptoms of vertigo are brought on by head position change. Psychological: Positive: Age Appropriate Behavior Skin Exam: Normal Re-Evaluation - Re-Evaluation First Eval Re-Evaluation Time: 16:42 Change: Improved Comment: The patient has received her discharge instruction, and note for work as well as prescriptions. She is walking very well to her car and appears symptom free. Dizzy Course/Dx - Course Course Of Treatment: 26 yr old with right otitis media and vertigo. Plan rx with augmentin and meclizine. Out of work two days. and follow up with PMD. - Differential Dx/Diagnosis Provider Diagnoses: vertigo. otitis media right Discharge - Discharge Plan Condition: Good Disposition: HOME Prescriptions: Amoxicillin/Clavulanate TAB* [Augmentin TAB 875*] 875 mg PO BID #20 tab Meclizine TAB* [Antivert 12.5 TAB*] 25 mg PO TID #14 tab Patient Education Materials: Vertigo (ED), Otitis Media (ED) Forms: *Work Release Referrals: Silviano Pires MD [Primary Care Provider] - 1 Day The documentation as recorded by the Yoko camara Gabriel accurately reflects the service I personally performed and the decisions made by me, Morales Humphrey MD.
== END 2017-02-08 16:40 | disposition home or self-care (01) ==
LOC: UCEAST 15:24
DX: R42 Dizziness and giddiness (principal); H66.91 Otitis media, unspecified, right ear
CPT/HCPCS: 99212; A9270-GY; G0463

== ENCOUNTER 2017-02-09 20:53 | Emergency (ER) | payer BC ==
[2017-02-09] MEDS ORDERED: NS 0.9% 1000 ML* 1,000 ML IV ONE (23:04)
[2017-02-09] MEDS ORDERED: Meclizine TAB* 12.5 MG PO ONE (23:05)
[2017-02-09 23:12] LABS: Hematocrit 40 % (35-47); Hemoglobin 13.2 g/dl (12.0-16.0); Mean Corpuscular HGB Conc 33 g/dl (31-36); Mean Corpuscular Hemoglobin 28 pg (27-31); Mean Corpuscular Volume 84 fL (80-97); Mean Platelet Volume 9 um3 (7.4-10.4); Red Blood Count 4.73 10^6/ul (4.0-5.4); Red Cell Distribution Width 14 % (10.5-15); White Blood Count 8.4 10^3/ul (3.5-10.8)
[2017-02-09 23:27] LABS: Albumin 4.2 g/dL (3.2-5.2); BUN/Creatinine Ratio 15.4 (8-20); Calcium 9.6 mg/dL (8.6-10.3); EGFR African American 141.7 (>60); EGFR Non-African American 110.2 (>60); Globulin 3.3 g/dL (2-4); Magnesium 1.9 mg/dL (1.9-2.7); Total Bilirubin 0.3 mg/dL (0.2-1.0); Total Protein 7.5 g/dL (6.4-8.9)
[2017-02-09 23:41] LABS: TSH (Thyroid Stimulating Horm) 2.45 mcIU/mL (0.34-5.60)
[2017-02-09 23:48] LABS: Urine Bacteria Absent (Absent); Urine Bilirubin Negative (Negative); Urine Glucose Negative (Negative); Urine Nitrite Negative (Negative)
--- NOTE | 2017-02-10 00:22 | ED ---
Dizziness - HPI Summary HPI Summary: 26F presents with dizziness for two weeks. She states that it was intermittent and has since then become more constant. She states she is having difficulty driving due to the dizziness. She denies any fever. She states she was seen yesterday and diagnosed with an ear infection. She has history of such but states that she has been having no ear pain. She states the dizziness is most like vertigo and is worst with positional changes. She has been seen by urgent care twice for this. She has been taking meclizine without relief. She denies any headache. She denies any sinus congestion or sore throat. She is currently on an antibiotic for her ear infection that is not working. She denies any history of vertigo. She has no medical conditions. She does not know her family history as she is adopted. She is not on control. - History Of Current Complaint Chief Complaint: EDDizziness Stated Complaint: DIZZINESS X 2 WEEKS Time Seen by Provider: 02/09/17 22:36 - Allergies/Home Medications Allergies/Adverse Reactions: Allergies Allergy/AdvReac Type Severity Reaction Status Date / Time Lamotrigine [From Lamictal] Allergy Rash Verified 02/09/17 22:46 Tramadol [From Ultram] Allergy Rash Verified 02/09/17 22:46 PMH/Surg Hx/FS Hx/Imm Hx Endocrine/Hematology History: Denies: Hx Anticoagulant Therapy Respiratory History: Reports: Hx Asthma Sensory History: Denies: Hx Contacts or Glasses, Hx Hearing Aid Opthamlomology History: Denies: Hx Contacts or Glasses Neurological History: Reports: Hx Headaches Psychiatric History: Reports: Hx Eating Disorder - Surgical History Surgery Procedure, Year, and Place: laparoscopy - Immunization History Date of Influenza Vaccine: 11/2016 Infectious Disease History: No Infectious Disease History: Denies: Hx Clostridium Difficile, Hx Hepatitis, Hx Human Immunodeficiency Virus (HIV), Hx Shingles, Hx Tuberculosis, Hx Known/Suspected VRE, Hx Known/ Suspected VRSA, History Other Infectious Disease, Traveled Outside the [place] in Last 30 Days - Family History Known Family History: Positive: Unknown - Pt was adopted, Cardiac Disease Family History: Depression, Anxiety - Social History Alcohol Use: Rare Hx Substance Use: Yes Substance Use Type: Reports: None Smoking Status (MU): Never Smoked Tobacco Review of Systems Negative: Fever Negative: Chest Pain Negative: Shortness Of Breath Neurological: Other - vertigo All Other Systems Reviewed And Are Negative: Yes Physical Exam Triage Information Reviewed: Yes Vital Signs On Initial Exam: Initial Vitals Temp Pulse Resp BP Pulse Ox 97.4 F 84 18 128/81 100 02/09/17 20:55 02/09/17 20:55 02/09/17 20:55 02/09/17 20:55 02/09/17 20:55 Vital Signs Reviewed: Yes Appearance: Positive: Well-Appearing Skin: Positive: Warm, Dry Head/Face: Positive: Normal Head/Face Inspection Eyes: Positive: Normal, EOMI, PAYAM, Conjunctiva Clear, Other: - nystagmus with EOM ENT: Positive: Normal ENT inspection, Pharynx normal, TM bulging - right, TM red - right minimial Neck: Positive: Supple, Nontender, No Lymphadenopathy Respiratory/Lung Sounds: Positive: Clear to Auscultation, Breath Sounds Present Cardiovascular: Positive: Normal, RRR Abdomen Description: Positive: Nontender, Soft Bowel Sounds: Positive: Present Neurological: Positive: Sensory/Motor Intact, Alert, Oriented to Person Place, Time, CN Intact II-III. Negative: [place] Test Psychiatric: Positive: Normal Diagnostics - Vital Signs Vital Signs Temp Pulse Resp BP Pulse Ox 02/09/17 20:55 97.4 F 84 18 128/81 100 - Laboratory Lab Results: Lab Results 02/09/17 02/09/17 02/09/17 Range/Units 23:00 23:00 23:00 WBC 8.4 (3.5-10.8) 10^3/ul RBC 4.73 (4.0-5.4) 10^6/ul Hgb 13.2 (12.0-16.0) g/dl Hct 40 (35-47) % MCV 84 (80-97) fL MCH 28 (27-31) pg MCHC 33 (31-36) g/dl RDW 14 (10.5-15) % Plt Count 224 (150-450) 10^3/ul MPV 9 (7.4-10.4) um3 Neut % (Auto) 50.5 (38-83) % Lymph % (Auto) 40.8 (25-47) % [place] % (Auto) 5.4 (1-9) % Eos % (Auto) 2.1 (0-6) % Baso % (Auto) 1.2 (0-2) % Absolute Neuts (auto) 4.2 (1.5-7.7) 10^3/ul Absolute Lymphs (auto) 3.4 (1.0-4.8) 10^3/ul Absolute Monos (auto) 0.5 (0-0.8) 10^3/ul Absolute Eos (auto) 0.2 (0-0.6) 10^3/ul Absolute Basos (auto) 0.1 (0-0.2) 10^3/ul Absolute Nucleated RBC 0.01 10^3/ul Nucleated RBC % 0.2 Sodium 137 (133-145) mmol/L Potassium Pending Chloride 104 (101-111) mmol/L Carbon Dioxide 26 (22-32) mmol/L Anion Gap Pending BUN 10 (6-24) mg/dL Creatinine 0.65 (0.51-0.95) mg/dL Est GFR ( Amer) 141.7 (>60) Est GFR (Non-Af Amer) 110.2 (>60) BUN/Creatinine Ratio 15.4 (8-20) Glucose 82 (70-100) mg/dL Lactic Acid 1.7 (0.5-2.0) mmol/L Calcium 9.6 (8.6-10.3) mg/dL Magnesium 1.9 (1.9-2.7) mg/dL Total Bilirubin 0.30 (0.2-1.0) mg/dL AST Pending ALT 11 (7-52) U/L Alkaline Phosphatase 79 (34-104) U/L Troponin I 0.00 (<0.04) ng/mL Total Protein 7.5 (6.4-8.9) g/dL Albumin 4.2 (3.2-5.2) g/dL Globulin 3.3 (2-4) g/dL Albumin/Globulin Ratio 1.3 (1-3) TSH 2.45 (0.34-5.60) mcIU/mL Urine Color Urine Appearance Urine pH (5-9) Ur Specific [place] (1.010-1.030) Urine Protein (Negative) Urine Ketones (Negative) Urine Blood (Negative) Urine Nitrate (Negative) Urine Bilirubin (Negative) Urine Urobilinogen (Negative) Ur Leukocyte Esterase (Negative) Urine WBC (Auto) (Absent) Urine RBC (Auto) (Absent) Ur Squamous Epith Cells (Absent) Urine Bacteria (Absent) Urine Glucose (Negative) 02/09/17 Range/Units 23:30 WBC (3.5-10.8) 10^3/ul RBC (4.0-5.4) 10^6/ul Hgb (12.0-16.0) g/dl Hct (35-47) % MCV (80-97) fL MCH (27-31) pg MCHC (31-36) g/dl RDW (10.5-15) % Plt Count (150-450) 10^3/ul MPV (7.4-10.4) um3 Neut % (Auto) (38-83) % Lymph % (Auto) (25-47) % [place] % (Auto) (1-9) % Eos % (Auto) (0-6) % Baso % (Auto) (0-2) % Absolute Neuts (auto) (1.5-7.7) 10^3/ul Absolute Lymphs (auto) (1.0-4.8) 10^3/ul Absolute Monos (auto) (0-0.8) 10^3/ul Absolute Eos (auto) (0-0.6) 10^3/ul Absolute Basos (auto) (0-0.2) 10^3/ul Absolute Nucleated RBC 10^3/ul Nucleated RBC % Sodium (133-145) mmol/L Potassium Chloride (101-111) mmol/L Carbon Dioxide (22-32) mmol/L Anion Gap BUN (6-24) mg/dL Creatinine (0.51-0.95) mg/dL Est GFR ( Amer) (>60) Est GFR (Non-Af Amer) (>60) BUN/Creatinine Ratio (8-20) Glucose (70-100) mg/dL Lactic Acid (0.5-2.0) mmol/L Calcium (8.6-10.3) mg/dL Magnesium (1.9-2.7) mg/dL Total Bilirubin (0.2-1.0) mg/dL AST ALT (7-52) U/L Alkaline Phosphatase (34-104) U/L Troponin I (<0.04) ng/mL Total Protein (6.4-8.9) g/dL Albumin (3.2-5.2) g/dL Globulin (2-4) g/dL Albumin/Globulin Ratio (1-3) TSH (0.34-5.60) mcIU/mL Urine Color Yellow Urine Appearance Clear Urine pH 6.0 (5-9) Ur Specific [place] 1.024 (1.010-1.030) Urine Protein Negative (Negative) Urine Ketones Negative (Negative) Urine Blood Negative (Negative) Urine Nitrate Negative (Negative) Urine Bilirubin Negative (Negative) Urine Urobilinogen Positive H (Negative) Ur Leukocyte Esterase 1+ H (Negative) Urine WBC (Auto) Trace(0-5/hpf) (Absent) Urine RBC (Auto) Trace(0-2/hpf) (Absent) Ur Squamous Epith Cells Present H (Absent) Urine Bacteria Absent (Absent) Urine Glucose Negative (Negative) Result Diagrams: 02/09/17 23:00 02/09/17 23:00 Lab Statement: Any lab studies that have been ordered have been reviewed, and results considered in the medical decision making process. - CT brain CT Interpretation: No Acute Changes - normal brain, partial opacification of posterior left ehtmoid sinus and inferior left sphenoid sinus CT Interpretation Completed By: Radiologist - EKG No standard instances Cardiac Rate: NL EKG Rhythm: Sinus Rhythm EKG Interpretation: normal sinus rhythmn Dizzy Course/Dx - Course Course Of Treatment: 26F presents with dizziness for two weeks. She states that it was intermittent and has since then become more constant. She states she is having difficulty driving due to the dizziness. She denies any fever. She states she was seen yesterday and diagnosed with an ear infection. She has history of such but states that she has been having no ear pain. She states the dizziness is most like vertigo and is worst with positional changes. She has been seen by urgent care twice for this. She has been taking meclizine without relief. She denies any headache. She denies any sinus congestion or sore throat. She is currently on an antibiotic for her ear infection that is not working. She denies any history of vertigo. She has no medical conditions. She does not know her family history as she is adopted. She is not on control. on exam has nystagmus with EOM. neg [place]. normal neuro exam. will get CT and labs. normal labs. ekg normal. CT normal brain with opacification of posterior left ethomid sinus. patient states has history of sinus infection. will have continue antibiotic and meclizine. will add flonase and sudafed. will have follow up with primary which has appt next . patient understand and agrees with plan. - Diagnoses Differential Diagnosis/HQI/PQRI: Benign Paroxysmal Positional Vertigo, Hypovolemia, Metabolic Abnormality Provider Diagnoses: Dizziness, Otitis media, Sinusitis Discharge - Discharge Plan Condition: Good Disposition: HOME Patient Education Materials: Vertigo (ED) Forms: *Work Release Referrals: Silviano Pires MD [Primary Care Provider] - Courtney Paz MD [Medical Doctor] - Additional Instructions: Follow up with primary within 5 days Continue taking antibiotic as prescribed Take meclizine up to 3 tablets a day for vertigo Take flonase one spray each nostril twice a day try sudafed Drink plenty of fluids Return to ED if develop any new or worsening symptoms
[2017-02-10 00:29] LABS: Potassium 3.9 mmol/L (3.5-5.0)
[2017-02-10 01:35] VITALS: BP 133/77
--- NOTE | 2017-02-10 07:26 | RAD ---
INDICATION: Dizziness COMPARISON: None TECHNIQUE: Noncontrast axial source images were acquired from the skull base to the vertex. FINDINGS: Ventricles/sulci: The ventricles and cisterns are normal in size and configuration for age. Brain parenchyma: There is no focal parenchymal finding, evidence of intracranial mass, or intracranial mass effect. Intracranial hemorrhage:None. Extra-axial spaces: There are no abnormal extra axial fluid collections or evidence of extra-axial mass. Calvarium: There is no calvarial fracture or other calvarial abnormality. Scalp: There is no evidence of scalp or extracalvarial soft tissue abnormality. Paranasal sinuses/mastoid: There is opacification of several posterior left ethmoid and a left sphenoid air cell consistent with sinusitis. The remaining paranasal sinuses are clear. Other: None. IMPRESSION: No acute intracranial findings. Sinusitis
== END 2017-02-10 01:31 | disposition home or self-care (01) ==
LOC: ED 20:53
DX: R42 Dizziness and giddiness (principal); H66.90 Otitis media, unspecified, unspecified ear; J32.9 Chronic sinusitis, unspecified
CPT/HCPCS: 36415; 70450; 80053; 81003; 81015; 83605; 83735; 84443; 84484; 85025; 87086; 93005; 96360; 99283; A9270-GY

== ENCOUNTER 2017-02-17 19:07 | Emergency (ER) | payer BC ==
[2017-02-17 20:15] VITALS: BP 157/78
[2017-02-17] MEDS ORDERED: Fluconazole 100 MG TAB* TAB PO ONE (21:58)
--- NOTE | 2017-02-17 22:10 | UC ---
Ear Complaint HPI - HPI Summary HPI Summary: SEVERAL DAYS OF LEFT EAR PAIN AND 4 WEEKS OF DIZZINESS. HAS BEEN SEEN 3 TIMES THIS MONTH FOR THE DIZZINESS. MECLIZINE NOT VERY HELPFUL. ON AUGMENTIN FOR RIGHT AOM. TESTING FOR BPPV IN ER WAS NEGATIVE. DIZZINESS IS MUCH IMPROVED NOW BUT NOT COMPLETELY RESOLVED. WORSE WITH POSITION CHANGE. PT ALSO C/O 2 DAYS OF WHITE VAGINAL D/C, BURNING AND ITCHING. STATES SHE FORGOT TO ASK FOR DIFLUCAN WHEN SHE WAS PRESCRIBED AUGMENTIN. - History of Current Complaint Chief Complaint: UCEar Stated Complaint: EAR PAIN,DIZZY Time Seen by Provider: 02/17/17 21:26 Hx Obtained From: Patient Hx Last Menstrual Period: 02/16/17 Onset/Duration: Gradual Onset, Lasting Weeks, Still Present Severity Initially: Moderate Severity Currently: Moderate Pain Intensity: 6 Pain Scale Used: 0-10 Numeric Aggravating Factors: Nothing Alleviating Factors: Nothing Associated Signs/Symptoms: Negative: Discharge, Hearing Loss, URI Symptoms - Allergies/Home Medications Allergies/Adverse Reactions: Allergies Allergy/AdvReac Type Severity Reaction Status Date / Time Lamotrigine [From Lamictal] Allergy Rash Verified 02/17/17 20:15 Tramadol [From Ultram] Allergy Rash Verified 02/17/17 20:15 PMH/Surg Hx/FS Hx/Imm Hx Respiratory History: Asthma Other History Of: Negative For: Anticoagulant Therapy - Surgical History Surgical History: Yes Surgery Procedure, Year, and Place: laparoscopy - Family History Known Family History: Positive: Unknown - Pt was adopted, Cardiac Disease Family History: Depression, Anxiety - Social History Alcohol Use: Rare Substance Use Type: None Smoking Status (MU): Never Smoked Tobacco - Immunization History Most Recent Influenza Vaccination: Unknown Most Recent Pneumonia Vaccination: Unknown Review of Systems Constitutional: Negative ENT: Ear Ache Respiratory: Negative Cardiovascular: Negative Gastrointestinal: Negative Genitourinary: Vaginal/Penile Burning, Vaginal/Penile Itching, Vaginal/Penile Discharge Neurological: Other - DIZZY All Other Systems Reviewed And Are Negative: Yes Physical Exam Triage Information Reviewed: Yes Appearance: Well-Appearing, No Pain Distress, Well-Nourished Vital Signs: Initial Vital Signs Temp 97.8 F 02/17/17 20:05 Pulse 82 02/17/17 20:05 Resp 18 02/17/17 20:05 BP 157/78 02/17/17 20:05 Pulse Ox 100 02/17/17 20:05 Vital Signs Reviewed: Yes Eyes: Positive: Conjunctiva Clear ENT: Positive: Hearing grossly normal, Pharynx normal, TMs normal Neck: Positive: Supple, Nontender, No Lymphadenopathy Respiratory Exam: Normal Cardiovascular Exam: Normal Abdomen Description: Positive: Soft Musculoskeletal: Positive: No Edema Neurological: Positive: Alert Psychological: Positive: Age Appropriate Behavior Skin: Negative: rashes Ear Complaint Course/Dx - Differential Dx/Diagnosis Provider Diagnoses: 1. DIZZINESS - IMPROVED. 2. LEFT EAR PAIN. 3. YEAST VAGINITIS Discharge - Discharge Plan Condition: Stable Disposition: HOME Prescriptions: Fluconazole 150 MG (NF) [Diflucan 150 mg (NF)] 150 mg PO ONCE #2 tab Patient Education Materials: Vulvovaginal Candidiasis (ED), Earache (ED), Dizziness (ED) Forms: *Work Release Referrals: Pranay BLOOD,Silviano [Primary Care Provider] - If Needed Additional Instructions: FOLLOW-UP WITH ENT FOR YOUR PERSISTENT DIZZINESS AND EAR PAIN. NO EAR INFECTION ON EXAM TODAY. COMPLETE YOUR AUGMENTIN PRESCRIBED. [facility] [place] [facility] [address] [facility] [phone] DIFLUCAN FOR YEAST INFECTION.
== END 2017-02-17 22:10 | disposition home or self-care (01) ==
LOC: UCEAST 19:07
DX: R42 Dizziness and giddiness (principal); H92.02 Otalgia, left ear; B37.3 Candidiasis of vulva and vagina; J45.909 Unspecified asthma, uncomplicated; Z88.5 Allergy status to narcotic agent; Z88.8 Allergy status to other drugs, medicaments and biological substances
CPT/HCPCS: 99211; A9270-GY; G0463

== ENCOUNTER 2017-02-28 16:23 | Emergency (ER) | payer SELFPAY ==
[2017-02-28] MEDS ORDERED: Ondansetron INJ* 2 MG/ML VIAL IV ONE (17:24)
[2017-02-28] MEDS ORDERED: NS 0.9% 1000 ML* 1,000 ML IV ONE (17:24)
[2017-02-28] MEDS ORDERED: Morphine INJ* 4 MG/ML 1 ML CARPUJECT IV ONE (17:24)
[2017-02-28] MEDS ORDERED: Iodixanol* (CONTRAST) 320 MG/ML 100 ML SDV IV ONE (18:06)
[2017-02-28 18:40] LABS: ABS Basophils 0.1 10^3/ul (0-0.2); ABS Eosinophils 0.1 10^3/ul (0-0.6); ABS Lymphocytes 2.8 10^3/ul (1.0-4.8); ABS Monocytes 0.5 10^3/ul (0-0.8); ABS Neutrophils 7.6 10^3/ul (1.5-7.7); ABS Nucleated RBC 0.01 10^3/ul; Eosinophil % 0.8 % (0-6); Hematocrit 40 % (35-47); Hemoglobin 13.4 g/dl (12.0-16.0); Lymphocyte % 25.3 % (25-47); Mean Corpuscular HGB Conc 34 g/dl (31-36); Mean Corpuscular Hemoglobin 28 pg (27-31); Mean Corpuscular Volume 82 fL (80-97); Mean Platelet Volume 8 um3 (7.4-10.4); Nucleated Red Blood Cells % 0.1; Platelet Count 257 10^3/ul (150-450); Red Blood Count 4.84 10^6/ul (4.0-5.4); Red Cell Distribution Width 14 % (10.5-15); White Blood Count 11.2 10^3/ul (3.5-10.8)
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
[2017-02-28 19:51] LABS: Urine Appearance Clear; Urine Blood Negative (Negative); Urine Color Straw; Urine Ketones Negative (Negative); Urine Protein Negative (Negative); Urine Specific Gravity 1.058 (1.010-1.030); Urine Urobilinogen Negative (Negative)
[2017-02-28] MEDS ORDERED: HYDROcodone/ACETAMIN 5-325 MG* 1 TAB PO ONE (20:44)
[2017-02-28] MEDS ORDERED: oxyCODONE/Acetamin 5/325 MG* TAB PO ONE (21:10)
[2017-02-28 21:42] VITALS: BP 103/79
[2017-02-28] MEDS ORDERED: Albuterol HFA INHALER* 8 gm MDI INH ONE (21:42)
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
== END 2017-02-28 22:06 | disposition home or self-care (01) ==
LOC: ED 16:23
DX: S62.001A Unspecified fracture of navicular [scaphoid] bone of right wrist, initial encounter for closed fracture (principal); J98.01 Acute bronchospasm; V49.9XXA Car occupant (driver) (passenger) injured in unspecified traffic accident, initial encounter; Y92.410 Unspecified street and highway as the place of occurrence of the external cause
CPT/HCPCS: 36415; 70450; 71260; 72125; 72131; 74177; 80053; 80307; 80320; 81003; 82550; 83605; 84484; 84702; 85025; 86850; 86900; 86901; 93005; 99283; A9270-GY; G0480; J2270; J2405; Q9967

== ENCOUNTER 2017-03-01 14:47 | Emergency (ER) | payer SELFPAY ==
[2017-03-01 14:52] VITALS: BP 126/92
[2017-03-01] MEDS ORDERED: Ketorolac INJ* 60 MG/2 ML VIAL IM ONE (16:20)
[2017-03-01] MEDS ORDERED: Ketorolac INJ* 60 MG/2 ML VIAL ONE (16:21)
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
[2017-03-01] MEDS ORDERED: Ketorolac TAB * 10 MG TAB PO ONE (17:28)
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
== END 2017-03-01 18:40 | disposition home or self-care (01) ==
LOC: ED 14:47
DX: S62.001A Unspecified fracture of navicular [scaphoid] bone of right wrist, initial encounter for closed fracture (principal); V89.2XXA Person injured in unspecified motor-vehicle accident, traffic, initial encounter; Z88.8 Allergy status to other drugs, medicaments and biological substances; Z88.5 Allergy status to narcotic agent
CPT/HCPCS: 96372; 96374; 99282; J1885

== ENCOUNTER 2017-03-08 11:26 | Day surgery (SDC) | payer BC ==
[~2017-03-08 11:26] MED LIST changes: +Buffered Lidocaine 0.9% SYRIN* 5 ML/SYR SYRINGE INTRADERM ONE; +Dexamethasone IV* 4 MG/ML 1 ML (4 MG) IV SLOW PU ONE; +Famotidine IV* 10 MG/ML 2 ML (20 mg) IV ONE; -Famotidine IV* 10 MG/ML 2 ML (20 mg) IV SLOW PU ONE; -Ondansetron INJ* 2 MG/ML VIAL IV ONE; -diPHENhydraMINE IV* 50 MG/ML 1 ml VIAL (BENADRYL) IV ONE; -methylPREDNISolone 125 MG* 2 ML VIAL IV ONE
[2017-03-08] MEDS ORDERED: Dexamethasone IV* 4 MG/ML 1 ML (4 MG) ONE (11:44)
[2017-03-08] MEDS ORDERED: ceFAZolin 2 GM PREMIX (*) 2 GM/50 ML BAG IVPB ONE (11:44)
[2017-03-08] MEDS ORDERED: Famotidine IV* 10 MG/ML 2 ML (20 mg) ONE (11:44)
[2017-03-08] MEDS ORDERED: Buffered Lidocaine 0.9% SYRIN* 5 ML/SYR SYRINGE ONE (11:45)
[2017-03-08] MEDS ORDERED: ceFAZolin 1 GM in Dextrose (*) 1 GM/50 ML BAG IVPB ONE (13:30)
[2017-03-08] MEDS ORDERED: Bupivacaine 0.25% SDV* 30 ML ONE (13:37)
[2017-03-08] MEDS ORDERED: fentaNYL* 50 MCG/ML 5 ML VIAL (250 MCG VIAL) ONE (13:57)
[2017-03-08] MEDS ORDERED: Midazolam* 1 MG/ML 10 ML VIAL (10 MG) ONE (13:57)
[2017-03-08] MEDS ORDERED: Atracurium* 10 MG/ML 10 ML VIAL ONE (13:57)
[2017-03-08] MEDS ORDERED: Ondansetron INJ* 2 MG/ML VIAL ONE (13:58)
[2017-03-08] MEDS ORDERED: Ketorolac INJ* 30 MG/ML 1 ML VIAL ONE (13:58)
[2017-03-08] MEDS ORDERED: Lidocaine 2% PF * 5 ML VIAL ONE (13:58)
[2017-03-08] MEDS ORDERED: Propofol* 10 MG/ML 20 ML BTL IV PUSH ONE (13:58)
[2017-03-08] MEDS ORDERED: fentaNYL* 50 MCG/ML 2 ML VIAL (100 MCG VIAL) ONE (14:36)
[2017-03-08] MEDS ORDERED: oxyCODONE/Acetamin 5/325 MG* TAB PO PRN (14:47)
[2017-03-08] MEDS ORDERED: DiMENhydriNATE IV* 50 MG/ML VIAL IV PUSH PRN (14:47)
[2017-03-08] MEDS ORDERED: Naloxone* 0.4 MG/ML 1 ML VIAL IV PRN (14:47)
[2017-03-08] MEDS ORDERED: Ondansetron INJ* 2 MG/ML VIAL IV PRN (14:47)
[2017-03-08] MEDS ORDERED: fentaNYL* 50 MCG/ML 2 ML VIAL (100 MCG VIAL) IV PRN (14:47)
[2017-03-08 16:51] VITALS: BP 117/67
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
== END 2017-03-08 16:52 | disposition home or self-care (01) ==
LOC: OR 11:26
PROVIDERS: ATTEND Orthopaedic Surgery Hand Surgery
DX: S62.024A Nondisplaced fracture of middle third of navicular [scaphoid] bone of right wrist, initial encounter for closed fracture (principal); V89.2XXA Person injured in unspecified motor-vehicle accident, traffic, initial encounter; Y92.410 Unspecified street and highway as the place of occurrence of the external cause; I10 Essential (primary) hypertension; J45.990 Exercise induced bronchospasm; F41.8 Other specified anxiety disorders; M79.604 Pain in right leg; E66.9 Obesity, unspecified
CPT/HCPCS: 81025; C1713; J0690; J1100; J1885; J2250; J2405; J2704; J3010

== ENCOUNTER 2017-03-17 13:49 | Observation (INO) | payer BC ==
--- OUTSIDE RECORDS SUMMARY | 2017-03-17 14:16 | XMS REPORT ---
:1990 External Reference #:[id number] Author Organization [facility] Address [address] [address] Phone [phone] Care Team Providers Name Role Phone Silviano Pires MD Primary Care Physician Unavailable Payers Type Date Identification Numbers Payment Provider Subscriber Commercial Policy Number: [id number] [facility] Sneha Lopez PayID: [id number] [address] [place] [address] Workers Compensation Effective: 2017 Policy Number: Lala Lopez [id number] Onset: 2017 Group Name: [phone] Fax [address] [address] PayID: [id number] [place] [address] Problems Date Description Provider Status Onset: 03/05/2017 Closed fracture of scaphoid bone of wrist Andrea Messer MD Active Social History Type Date Description Comments Lives With Spouse Occupation Unemployed ETOH Use Rarely consumes alcohol Smoking Patient has never smoked Allergies, Adverse Reactions, Alerts Description No Information Medications Medication Date Status Form Strength Qnty SIG Indications Ordering Provider Anemia 03/05/2017 Active anemia Andrea Messer MD Vital Signs Date Vital Result Comment 03/05/2017 Height 64 inches 5'4" Weight 270.00 lb Heart Rate 66 /min BP Systolic 132 mmHg BP Diastolic 70 mmHg Respiratory Rate 20 /min Body Temperature 97.6 F Pain Level 7 BMI (Body Mass Index) 46.3 kg/m2 Results Description No Information Procedures Description No Information Plan of Care Future Appointment(s):03/08/2017 5:00 pm - DUC Myrick at [facility]03/08/2017 5:00 pm - Andrea Messer MD at [facility]03/19/2017 3:30 pm - Andrea Messer MD at [facility]03/05/2017 - Andrea Messer, [id number] Unsp fracture of navicular bone of right wrist, initFollow up:Follow up: 10-14 days postop
--- OUTSIDE RECORDS SUMMARY | 2017-03-17 14:16 | XMS REPORT ---
:1990 External Reference #:[id number] Author Organization [facility] [employer] Address [address] [address] Phone [phone] Care Team Providers Name Role Phone Silviano Pires MD Primary Care Physician Unavailable Payers Type Date Identification Numbers Payment Provider Subscriber Commercial Policy Number: [id number] [facility] Sneha Lopez PayID: [id number] [address] [place] [address] Workers Compensation Effective: 2017 Policy Number: Lala Lopez [id number] Onset: 2017 Group Name: [phone] Fax [address] PayID: [id number] [place] [address] Problems Date Description Provider Status Onset: 03/05/2017 Closed fracture of scaphoid bone of wrist Andrea Messer MD Active Social History Type Date Description Comments Lives With Spouse Occupation Unemployed ETOH Use Rarely consumes alcohol Smoking Patient has never smoked Allergies, Adverse Reactions, Alerts Date Description Reaction Status Severity Comments 03/11/2017 Tramadol active Brand and Generic Medications Medication Date Status Form Strength Qnty SIG Indications Ordering Provider Hydrocodone-Ac 03/07/19 Active Tablets 5-325mg 30tabs 1 or 2 Andrea etaminophen 18 tabs by MD Gui mouth every 6-8 hours as needed for pain Anemia 03/05/19 Active anemia Andrea Messer MD Vital Signs Date Vital Result Comment 03/11/2017 Height 64 inches 5'4" Weight 270.00 lb per pt Heart Rate 78 /min reg BP Systolic Sitting 110 mmHg Lue, lg cuff BP Diastolic Sitting 76 mmHg Lue, lg cuff Respiratory Rate 16 /min Pain Level 5 right wrist BMI (Body Mass Index) 46.3 kg/m2 03/05/2017 Height 64 inches 5'4" Weight 270.00 lb Heart Rate 66 /min BP Systolic 132 mmHg BP Diastolic 70 mmHg Respiratory Rate 20 /min Body Temperature 97.6 F Pain Level 7 BMI (Body Mass Index) 46.3 kg/m2 Results Description No Information Procedures Description No Information Plan of Care Future Appointment(s):03/19/2017 3:30 pm - Andrea Messer MD at [facility]03/11/2017 - [place], [facility]-[id number] Unsp fx navicular bone of r wrist, subs for fx w routn healFollow up:Follow up: already scheduled with Dr. Messer
--- OUTSIDE RECORDS SUMMARY | 2017-03-17 14:16 | XMS REPORT ---
:1990 External Reference #:[id number] Author Organization [employer] [facility] Address [address] [address] Phone [phone] Care Team Providers Name Role Phone Silviano Pires MD Primary Care Physician Unavailable Payers Type Date Identification Numbers Payment Provider Subscriber Commercial Policy Number: [id number] [facility] Sneha Lopez PayID: [id number] [address] [place] [address] Problems Date Description Provider Status Onset: 03/05/2017 [...] Description No Information Procedures Description No Information Encounters Type Date Location Provider CPT E/M Dx Office Visit 03/05/2017 [place] [id number] 9:15a [facility] Plan of Care Future Appointment(s):03/19/2017 3:30 pm - Andrea Messer MD at [facility]03/05/2017 - BRENDA [id number] Unsp fracture of navicular bone of right wrist, initFollow up:Follow up: 10-14 days postop
[2017-03-17] MEDS ORDERED: Ondansetron INJ* 2 MG/ML VIAL IV ONE (15:23)
[2017-03-17] MEDS ORDERED: HYDROmorphone INJ* 1 MG/ML CARPUJECT SYRINGE IV ONE (15:23)
[2017-03-17] MEDS ORDERED: NS 0.9% 1000 ML* 1,000 ML IV ONE ×2 (15:23→19:15)
[2017-03-17] MEDS ORDERED: Dexamethasone IV* 10 MG in NS 0.9% 50 ML* 50 ML IVPB ONE (19:15)
[2017-03-17 21:00] LABS: ABS Basophils 0.1 10^3/ul (0-0.2); ABS Eosinophils 0.1 10^3/ul (0-0.6); ABS Lymphocytes 3.1 10^3/ul (1.0-4.8); ABS Monocytes 0.8 10^3/ul (0-0.8); ABS Neutrophils 8.6 10^3/ul (1.5-7.7); ABS Nucleated RBC 0 10^3/ul; Eosinophil % 0.4 % (0-6); Hematocrit 37 % (35-47); Hemoglobin 12.1 g/dl (12.0-16.0); Lymphocyte % 24.5 % (25-47); Mean Corpuscular HGB Conc 33 g/dl (31-36); Mean Corpuscular Hemoglobin 27 pg (27-31); Mean Corpuscular Volume 84 fL (80-97); Mean Platelet Volume 8 um3 (7.4-10.4); Nucleated Red Blood Cells % 0.1; Platelet Count 228 10^3/ul (150-450); Red Blood Count 4.41 10^6/ul (4.0-5.4); Red Cell Distribution Width 14 % (10.5-15); White Blood Count 12.7 10^3/ul (3.5-10.8)
[2017-03-17 21:28] LABS: EGFR Non-African American 104.6 (>60)
[2017-03-17] MEDS ORDERED: Lidocaine 2% VISCOUS* 15 ML UDC SWISH SWAL ONE (21:36)
[2017-03-17] MEDS ORDERED: Dexamethasone IV* 4 MG/ML 5 ML VIAL (20 MG) ONE (22:05)
[2017-03-18] MEDS ORDERED: HYDROmorphone INJ* 1 MG/ML CARPUJECT SYRINGE ONE (02:13)
[2017-03-18] MEDS ORDERED: Ondansetron INJ* 2 MG/ML VIAL ONE (02:13)
[2017-03-18] MEDS ORDERED: Piperacillin/Tazobac (*) 3.375 GM BAG ONE (02:14)
[2017-03-18] MEDS ORDERED: Albuterol 2.5 MG/3 ML NEB.SOL* (0.083%) INH PRN (03:17)
[2017-03-18] MEDS ORDERED: Acetaminophen TAB* 325 MG PO PRN (03:17)
[2017-03-18] MEDS ORDERED: Ondansetron INJ* 2 MG/ML VIAL IV PRN (03:17)
[2017-03-18] MEDS ORDERED: oxyCODONE TAB* 5 MG TAB PO PRN (03:17)
[2017-03-18] MEDS ORDERED: CMCS: Melatonin (NF) 3 MG TAB PO PRN (03:17)
[2017-03-18] MEDS ORDERED: NS 0.9% 1000 ML* 1,000 ML IV SCH (03:30)
[2017-03-18] MEDS ORDERED: Acetaminophen ADULT LIQ* 650 MG/20.3 ML UDC PO PRN (03:32)
--- NOTE | 2017-03-18 03:52 | HP ---
H&P (Free Text) History and Physical: PCP: Wanda Pires MD Otorhinolaryngology: Dr Patten in [place] Date/Time: 03/17/2017 9720 CC: throat pain HPI: Ms Lopez is a 26YO female POD 1 of a tonsillectomy performed at [facility] by Dr Patten who presents reporting severe throat pain and an inability to manage saliva which is preventing her from taking the pain medications and ABX on which she was discharged. She also reports a choking sensation, but denies F/C, N/V, bleeding, sweats, or other issues. Upon my initial evaluation, she appeared very uncomfortable and anxious. However, her work up was incomplete as no imaging had been ordered. A CT soft tissue of the neck revealed a retropharyngeal fluid collection most consistent clinically with a post-operative hematoma, less likely early abscess. Patient requested transfer back to [facility] for further management by her operative surgeon. However, he was not psychologist military personnel and the covering surgeon refused the transfer. As such, Lolis Melissa MD ORL was consulted and agreed to evaluate her in the AM. She will be started on piperacillin/tazobactam and we will attempt improved pain control. PMedHx HTN asthma anemia depression/anxiety Ambulatory Orders Escitalopram Oxalate [Lexapro 20 mg] 20 mg PO BEDTIME 07/21/16 Terbinafine HCl (Topical) [Lamisil At [place]] 1 % EX BID #1 spr 12/28/16 oxyCODONE/Acetamin 5/325 MG* [Percocet 5/325 TAB*] 1 tab PO Q6H PRN #8 tab MDD 4 02/28/17 Ketorolac TAB * [Toradol TAB *] 10 mg PO Q6H #16 tab 03/01/17 QUEtiapine TAB* [SEROquel TAB*] 25 mg PO BEDTIME 03/05/17 Lidocaine 2% VISCOUS* [Xylocaine 2% Viscous*] 5 ml SWISH SPIT Q6H PRN #1 btl Allergies Lamotrigine [From Lamictal] Allergy (Verified 03/08/17 11:52) Rash Prednisone Allergy (Verified 03/08/17 11:52) Nausea And Vomiting Tramadol [From Ultram] Allergy (Verified 03/08/17 11:52) Rash PSurgHx tonsillectomy appendectomy ORIF R wrist SocHx: denies tobacco, alcohol, & recreational drugs; single, no children, lives with her fiance; full code status FamHx: unknown, adopted ROS: as above, otherwise reviewed and all were negative vitals: Vital Signs Temp 36.2 C 03/18/17 03:22 Pulse 79 03/18/17 03:22 Resp 18 03/18/17 03:22 BP 135/54 03/18/17 03:22 Pulse Ox 92 03/18/17 03:22 Intake & Output 03/17/17 03/17/17 03/18/17 11:59 23:59 11:59 Intake Total 1000 Balance 1000 Weight 122.47 kg Intake: IV Fluids 1000 Constitutional: NAD, normally developed, morbidly obese white female HEENM: atraumatic; sclera/conjunctiva: anicteric/clear; hearing: clinically intact; oropharynx: clear, mucosa moist, s/p recent tonsillectomy Neck: soft tissue: tender anteriorly w/o lymphadenopathy; thyroid: normal Pulmonary: clear to auscultation bilaterally, good aeration, no accessory muscle use CV: RR/RR, normal S1S2, no carotid bruit, no jugular venous distention, 2+ B DP/ PT, no edema Abdominal: soft, non-distended, non-tender, no rebound/guarding/rigidity, normoactive bowel sounds, no hepatosplenomegaly or masses, no costovertebral angle tenderness Musculoskeletal: general: grossly intact; gait: stable Integumental: normal appearance and texture of exposed skin Psychiatric orientation: AA&O to PPS affect: anxious mood: cooperative eye contact: fair content: borderline reliable, was not forthcoming regarding medications/DX of depression/anxiety responses: timely insight: fair Testing: Lab Results 03/17/17 03/17/17 03/17/17 Range/Units 20:50 20:50 20:50 WBC 12.7 H (3.5-10.8) 10^3/ul RBC 4.41 (4.0-5.4) 10^6/ul Hgb 12.1 (12.0-16.0) g/dl Hct 37 (35-47) % MCV 84 (80-97) fL MCH 27 (27-31) pg MCHC 33 (31-36) g/dl RDW 14 (10.5-15) % Plt Count 228 (150-450) 10^3/ul MPV 8 (7.4-10.4) um3 Neut % (Auto) 68.1 (38-83) % Lymph % (Auto) 24.5 L (25-47) % [place] % (Auto) 6.2 (1-9) % Eos % (Auto) 0.4 (0-6) % Baso % (Auto) 0.8 (0-2) % Absolute Neuts (auto) 8.6 H (1.5-7.7) 10^3/ul Absolute Lymphs (auto) 3.1 (1.0-4.8) 10^3/ul Absolute Monos (auto) 0.8 (0-0.8) 10^3/ul Absolute Eos (auto) 0.1 (0-0.6) 10^3/ul Absolute Basos (auto) 0.1 (0-0.2) 10^3/ul Absolute Nucleated RBC 0 10^3/ul Nucleated RBC % 0.1 Sodium 137 (133-145) mmol/L Potassium 3.7 (3.5-5.0) mmol/L Chloride 103 (101-111) mmol/L Carbon Dioxide 28 (22-32) mmol/L Anion Gap 6 (2-11) mmol/L BUN 7 (6-24) mg/dL Creatinine 0.68 (0.51-0.95) mg/dL Est GFR ( Amer) 134.5 (>60) Est GFR (Non-Af Amer) 104.6 (>60) BUN/Creatinine Ratio 10.3 (8-20) Glucose 94 (70-100) mg/dL Lactic Acid 1.1 (0.5-2.0) mmol/L Calcium 8.7 (8.6-10.3) mg/dL Total Bilirubin 0.50 (0.2-1.0) mg/dL AST 22 (13-39) U/L ALT 7 (7-52) U/L Alkaline Phosphatase 75 (34-104) U/L C-Reactive Protein 22.89 H (< 5.00) mg/L Total Protein 6.3 L (6.4-8.9) g/dL Albumin 3.6 (3.2-5.2) g/dL Globulin 2.7 (2-4) g/dL Albumin/Globulin Ratio 1.3 (1-3) CT neck soft tissue, personally reviewed: IMPRESSION: Retropharyngeal fluid collection may reflect post-surgical hematoma or early abscess formation. Right upper lobe air space opacity suggests pneumonia. Impression: 26F POD [address] [facility] by Dr Patten presents with severe pain & difficulty managing secretions, found to have retropharyngeal hematoma vs less likely early abscess DIAGNOSIS & PLAN Primary POD 1 tonsillectomy w/ retropharyngeal hematoma vs less likely early abscess : Lolis Melissa MD ORL consulted by ED, will evaluate in AM : IV piperacillin/tazobactam : IVFs : NPO : pain control : supportive care CT evidence of RUL pneumonia : not clinically apparent : ABX as above Secondary HTN : not on medications, monitor asthma : albuterol PRN depression/anxiety : continue escitalopram & quetiapine Admission Rational: inpatient for IV ABX and IVFs, airway monitoring; inappropriate for outpatient setting DVTp: SADAF Code Status: full
--- NOTE | 2017-03-18 03:53 | ED ---
I, Thad Ordoñez, scribed for Purnima Vang MD on 03/18/17 at 0150 . Progress - Progress Note Progress Note: Pt had a tonsillectomy 2 days ago at [facility] with Dr. Patten. Today, the pt visited the ED c/o difficulty swallowing and increased pain. CT neck reveals retropharyngeal fluid collection may reflect postsurgical hematoma, or early abscess formation. Right upper lobe air space opacity suggests pneumonia. The pt wishes to go to [facility]. Discussed case with Dr. Watkins who is in for Dr. Patten. Dr. Watkins stated that taking in the pt could be a EMTALA violation. Discussed with the mix house operator who will contact the beehive kiln supervisor to find out more about EMTALA violations and get back to the ED. Discussed about pt with Dr. Melissa at 0158 who recommends the pt be admitted. He says to give the pt pain meds and abx, and he will see the pt in the morning. Discussed about pt with Dr. Olivares at 0203 who accepts pt for admission. Pt will be admitted. Pt is agreeable with this plan. The documentation as recorded by the Tiago camara Nikita accurately reflects the service I personally performed and the decisions made by , Purnima Vang MD.
[2017-03-18] MEDS ORDERED: LORazepam INJ* 2 MG/ML 1 ML VIAL IV PRN (03:57)
[2017-03-18] MEDS ORDERED: ZOSYN 3.375 GM x ONE DOSE over 30 miuntes IVPB ×2 (04:00)
[2017-03-18] MEDS: oxyCODONE ORAL.SOLN* 5 MG/5 ML UDC PO PRN ×3 (04:44→20:04)
[2017-03-18 05:08] LABS: ABS Basophils 0 10^3/ul (0-0.2); ABS Eosinophils 0 10^3/ul (0-0.6); ABS Lymphocytes 1.2 10^3/ul (1.0-4.8); ABS Monocytes 0.2 10^3/ul (0-0.8); ABS Neutrophils 11.3 10^3/ul (1.5-7.7); ABS Nucleated RBC 0 10^3/ul; Eosinophil % 0 % (0-6); Hematocrit 38 % (35-47); Hemoglobin 12.4 g/dl (12.0-16.0); Lymphocyte % 9.4 % (25-47); Mean Corpuscular HGB Conc 33 g/dl (31-36); Mean Corpuscular Hemoglobin 27 pg (27-31); Mean Corpuscular Volume 84 fL (80-97); Mean Platelet Volume 9 um3 (7.4-10.4); Nucleated Red Blood Cells % 0; Platelet Count 242 10^3/ul (150-450); Red Blood Count 4.54 10^6/ul (4.0-5.4); Red Cell Distribution Width 14 % (10.5-15); White Blood Count 12.6 10^3/ul (3.5-10.8)
[2017-03-18] MEDS ORDERED: Omeprazole CAP* 20 MG PO SCH (06:00)
[2017-03-18] MEDS ORDERED: Dexamethasone IV* 8 MG in NS 0.9% 50 ML* 50 ML IVPB ONE (06:15)
[2017-03-18] MEDS ORDERED: Dexamethasone IV* 4 MG/ML 1 ML (4 MG) IV SLOW PU ONE (07:00)
--- NOTE | 2017-03-18 07:51 | RAD ---
HISTORY: Pain in 24 hours post tonsillectomy COMPARISONS: None TECHNIQUE: Multiple contiguous axial CT scans were obtained of the neck without intravenous contrast, with coronal and sagittal multiplanar reformations. FINDINGS: The study is limited by the lack of intravenous contrast. This limits evaluation of the solid organs and vasculature. BRAIN AND ORBITS: The visualized brain and orbits are normal. PARANASAL SINUSES: The visualized paranasal sinuses are clear. SALIVARY GLANDS: The parotid glands, submandibular glands, sublingual glands are normal. NASAL CAVITY/NASOPHARYNX: The nasal cavity and nasopharynx are normal. ORAL CAVITY/OROPHARYNX: The oral cavity is partially secured by streak artifact from dental amalgam. There is mucosal thickening of the oropharynx. There is retropharyngeal fluid versus edema. LARYNGEAL APPARATUS/HYPOPHARYNX: There is mucosal thickening of the supraglottic laryngeal mucosa. There is retropharyngeal fluid versus edema. UPPER AIRWAY/UPPER ESOPHAGUS: The visualized upper airway and esophagus are normal. LUNG APICES: There is patchy ground less opacification of the right lung apex. THYROID GLAND: The thyroid gland is normal. LYMPH NODES: There is no lymphadenopathy by size criteria. VASCULATURE: The vasculature is unremarkable. BONES AND SOFT TISSUES: No bone or soft tissue abnormalities are noted. OTHER: None. IMPRESSION: 1. THERE IS PHARYNGEAL MUCOSAL THICKENING WITH RETROPHARYNGEAL EDEMA VERSUS FLUID. THERE IS NO LOCULATED FLUID COLLECTION. THIS MAY BE REACTIVE IN THE HISTORY OF RECENT SURGERY, THOUGH INFECTION IS WITHIN THE DIFFERENTIAL. 2. THERE IS PATCHY AIRSPACE DISEASE OF THE RIGHT UPPER LUNG.
[2017-03-18] MEDS: HYDROmorphone INJ* 2 MG/ML CARPUJECT SYRINGE IV PRN (08:26)
[2017-03-18] MEDS: Pantoprazole IV* 40 MG IV SCH (08:27)
[2017-03-18] MEDS: Docusate LIQ* 100 MG/10 ML UDC PO SCH ×2 (08:27→21:21)
[2017-03-18] MEDS ORDERED: Piperacillin/Tazobac ADVAN(*) 3.375 GM in NS 0.9% 100 ML* 100 ML IVPB SCH (09:00)
--- NOTE | 2017-03-18 09:58 | CONS ---
CONSULTATION REPORT: DATE OF CONSULT: 03/18/17 REQUESTING CONSULT: Hospitalist Service. HISTORY OF PRESENT ILLNESS: The patient is a 26-year-old, who had her tonsillectomy done by Dr. Earline griffin in [place] on Wednesday. Starting early yesterday morning, she said she just started getting more and more pain, unable to drink, and it got worse and worse through the day and she presented to [facility] Emergency Room around 1 o'clock in the afternoon. I got a phone call about 2 a.m. that she was there and she at that point had gotten some hydration and Decadron, but they had obtained a CT scan that they were concerned about. It appeared that she was severely dehydrated, having pain management problems, and I recommended admission. This morning, she is feeling much better, she is able to drink better, and is in good spirits. PHYSICAL EXAM: Her oropharynx is as expected postoperatively with eschars from the tonsillectomy and edema of her uvula and posterior pharynx. Neck is soft without any significant lymphadenopathy. ASSESSMENT: Postoperative day 3 from a tonsillectomy and became severely dehydrated and difficulty with pain management. RECOMMENDATIONS: Continue with hydration and I see no further need for antibiotics not an abscess forming, another dose of dexamethasone could be helpful. Keep her for hydration and pain management as long as necessary. [id number]/CPS #: [id number] MTDD
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
[2017-03-18] MEDS: Cetirizine* 10 MG TAB PO SCH (13:43)
[2017-03-18] MEDS: NS 0.9% 1000 ML* 1,000 ML IV SCH ×3 (15:51→23:42)
--- NOTE | 2017-03-18 17:53 | PN ---
Hospitalist Progress Note Date of Service: 03/18/17 Pt seen and examined. Appreciate Dr. Melissa recs. s/p tonsillectomy POD #2. .IV zosyn stopped. Pt diet advanced. Feeling much better after the steroids. Started her zyrtec back. Likely d/c in 03/19 AM.
[2017-03-19] MEDS: HYDROmorphone INJ* 2 MG/ML CARPUJECT SYRINGE IV PRN ×2 (04:46→07:53)
[2017-03-19] MEDS: Pantoprazole IV* 40 MG IV SCH (07:53)
[2017-03-19] MEDS: Docusate LIQ* 100 MG/10 ML UDC PO SCH (07:59)
[2017-03-19] MEDS: Cetirizine* 10 MG TAB PO SCH (07:59)
[2017-03-19] MEDS ORDERED: Dexamethasone IV* 4 MG/ML 1 ML (4 MG) IV SLOW PU ONE (08:31)
[2017-03-19] MEDS: NS 0.9% 1000 ML* 1,000 ML IV SCH ×2 (14:12→17:12)
[2017-03-19] MEDS: oxyCODONE ORAL.SOLN* 5 MG/5 ML UDC PO PRN (14:54)
[2017-03-19 16:25] VITALS: BP 109/57
--- NOTE | 2017-03-20 04:57 | DS ---
DISCHARGE SUMMARY: DATE OF ADMISSION: 03/17/17 DATE OF DISCHARGE: 03/19/17 ADMITTING PROVIDER: Pérez Olivares MD ATTENDING PHYSICIAN: Chuy Doe MD CHIEF COMPLAINT: Severe throat pain, inability to manage saliva/secretions, inability to swallow medications. PRINCIPAL DIAGNOSES: Status post tonsillectomy; dysphagia; throat pain; excessive secretions in the setting of cessation of her antihistamine treatment pre-operatively. HISTORY OF PRESENT ILLNESS AND HOSPITAL COURSE: Mrs. Sneha Lopez is a 26-year- old female with past medical history of asthma, depression, anxiety, hypertension, anemia, who on 03/16/17 had a tonsillectomy performed by Dr. Patten at [facility]. Please see H and P of Dr. Pérez Olivares for full details. Since that time, the patient reported severe throat pain, inability to manage her saliva, creating a choking sensation and inability to swallow her pills or tolerate p.o. intake. She was uncomfortable appearing and anxious. She called [facility] who told her to present to the nearest emergency room instead of [facility]. The patient presented to [facility] ED , got a CT of the soft tissue of the neck, it demonstrated a pharyngeal mucosal thickening with retropharyngeal edema versus fluid, no loculated fluid and thought reactive in the history of recent surgery, though infection was within the differential. There was patchy airspace disease of the right upper lung. Dr. Melissa of ENT was consulted. The patient had been started on some Decadron in the emergency room and Dr. Melissa's evaluation suggested continued hydration, no need for further antibiotics (the patient had been started on Zosyn upon admission), as he was not concerned about an abscess formation; and to continue high pain management. The patient felt improved on hospital day #2, but still with significant phlegm and fluid buildup in the back of her throat and refused Zyrtec initiation given previous instructions by Dr. Patten. By morning of hospital day #3 at 4 a.m., the patient was in again severe pain and requiring IV Dilaudid and did not feel like she could tolerate p.o. intake. This slowly improved throughout hospital day #3 and is being discharged with additional liquid, antihistamine, pain control, and Decadron to control her symptoms until she can follow with Dr. Patten and her primary care physician next week. DISCHARGE MEDICATIONS: Include: 1. Seroquel 25 mg p.o. q.h.s., (has been held for few weeks prior to surgery). 2. Oxycodone 5mg/5ml liquid po q4h p.r.n. pain (eventual transition to previously prescribed percosets q6h prn) 3. Claritin 5 mg/5 mL q.12 hours p.r.n. 4. Lidocaine 2% viscous swish and swallow q.6 hours p.r.n. 5. Lexapro 20 mg p.o. q.h.s. (has been held for a few weeks prior to surgery). 6. Decadron 1 mg p.o. q.12 hours for 5 days. 7. Clotrimazole lakesha 10 mg t.i.d. 8. Azithromycin 25 mg p.o. daily . 9. Acetaminophen 650 mg liquid po q.6 hours p.r.n. pain or fever. DISCHARGE DIET: Recommend clear liquid diet initially with advancement at tolerated. ACTIVITY LEVEL: No restrictions. FOLLOWUP: Please followup with Dr. Patten and primary care physician, Dr. Silviano Pires within 3 to 5 days of discharge. TIME SPENT ON DISCHARGE: Thirty-five minutes. [id number]/[facility] #: [id number] REYNA
== END 2017-03-19 18:10 | disposition home or self-care (01) ==
LOC: ED 13:49 → SSU 03-18 03:13 → INTOOBSV 03-18 03:13 → MED 03-18 11:26
PROVIDERS: ADMIT Hospitalist; ATTEND Internal Medicine
DX: G89.18 Other acute postprocedural pain (principal); R07.0 Pain in throat; R13.10 Dysphagia, unspecified; Z79.899 Other long term (current) drug therapy; Z88.8 Allergy status to other drugs, medicaments and biological substances; I10 Essential (primary) hypertension; J45.909 Unspecified asthma, uncomplicated; F32.9 Major depressive disorder, single episode, unspecified; F41.9 Anxiety disorder, unspecified
CPT/HCPCS: 36415; 70490; 80053; 83605; 85025; 86140; 96361; 96374; 96375; 96376; 99285; A9270-GY; G0378; J1100; J1170; J2405; J2543

== ENCOUNTER 2017-09-25 15:47 | Emergency (ER) | payer SELFPAY ==
[2017-09-25 16:09] VITALS: BP 141/78
--- NOTE | 2017-09-25 16:38 | UC ---
Complaint Female HPI - HPI Summary HPI Summary: PATIENT PRESENTS WITH SEVERAL DAYS OF URINARY FREQUENCY AND ABDOMINAL CRAMPING AND NAUSEA. STATES SHE IS ABOUT 10 DAYS LATE FOR HER PERIOD WHICH IS UNUSUAL FOR HER. TOOK HOME TESTS WHICH WERE NEGATIVE. DENIES FEVER. STATES IT FEELS LIKE A UTI. - History Of Current Complaint Chief Complaint: UCAbdominalPain Stated Complaint: POSS UTI Time Seen by Provider: 09/25/17 16:02 Hx Obtained From: Patient Hx Last Menstrual Period: 08/17/17 Onset/Duration: Gradual Onset, Lasting Days, Still Present Timing: Constant Severity Initially: Moderate Severity Currently: Moderate Pain Intensity: 4 Pain Scale Used: 0-10 Numeric Character: Burning, Cramping Aggravating Factor(s): Urination Associated Signs And Symptoms: Positive: Nausea. Negative: Fever, Vaginal Bleeding/Discharge, Vomiting(# Of Episodes =) - Allergies/Home Medications Allergies/Adverse Reactions: Allergies Allergy/AdvReac Type Severity Reaction Status Date / Time lamotrigine [From Lamictal] Allergy Rash Verified 09/25/17 16:09 prednisone Allergy Nausea And Verified 09/25/17 16:09 Vomiting tramadol [From Ultram] Allergy Rash Verified 09/25/17 16:09 Home Medications: Home Medications [id number]/Iron Fum/Folic/Docusate [ 19 Tablet] 1 tab PO DAILY 09/25/17 [ History Confirmed 09/25/17] PMH/Surg Hx/FS Hx/Imm Hx Respiratory History: Asthma Psychological History: Anxiety, Depression Other History Of: Negative For: Anticoagulant Therapy - Surgical History Surgical History: Yes Surgery Procedure, Year, and Place: laparoscopy [facility]. tonsillectomy. wrist surgery R - Family History Known Family History: Positive: Unknown - Pt was adopted, Cardiac Disease Family History: Depression, Anxiety - Social History Alcohol Use: None Substance Use Type: None Smoking Status (MU): Never Smoked Tobacco Have You Smoked in the Last Year: No - Immunization History Most Recent Influenza Vaccination: Unknown Most Recent Pneumonia Vaccination: Unknown Review of Systems Constitutional: Negative Respiratory: Negative Cardiovascular: Negative Gastrointestinal: Abdominal Pain, Nausea Genitourinary: Frequency, Urgency All Other Systems Reviewed And Are Negative: Yes Physical Exam Triage Information Reviewed: Yes Appearance: Well-Appearing, No Pain Distress, Well-Nourished Vital Signs: Initial Vital Signs Temp 97.7 F 07/28/18 16:03 Pulse 94 09/25/17 16:03 Resp 16 09/25/17 16:03 BP 141/78 09/25/17 16:03 Pulse Ox 98 09/25/17 16:03 Laboratory Tests 09/25/17 09/25/17 16:16 16:18 POC Urine Color Yellow POC Urine Clarity Cloudy POC Urine pH 5.5 POC Ur Specif [place] 1.020 POC Urine Protein Negative POC Ur Glucose (UA) Negative POC Urine Ketones Negative POC Urine Blood Negative POC Urine Nitrite Negative POC Urine Bilirubin Negative POC Urine Urobilinogen 0.2 POC U Leukocyte Esteras 1+ A POC Ur Test Negative Vital Signs Reviewed: Yes Eyes: Positive: Conjunctiva Clear ENT: Positive: Hearing grossly normal Neck: Positive: Supple Respiratory: Positive: No respiratory distress, No accessory muscle use Cardiovascular: Positive: Pulses Normal Abdomen Description: Positive: Soft. Negative: CVA Tenderness (R), CVA Tenderness (L), Distended, Guarding Musculoskeletal: Positive: No Edema Neurological: Positive: Alert Psychological: Positive: Age Appropriate Behavior Skin: Negative: rashes Complaint Female Dx - Differential Dx/Diagnosis Provider Diagnoses: UTI Discharge - Sign-Out/Discharge Documenting (check all that apply): Patient Departure - Discharge Plan Condition: Stable Disposition: HOME Prescriptions: Nitrofurantoin Macrocrystal [Nitrofurantoin] 100 mg PO BID #14 capsule Patient Education Materials: Urinary Tract Infection in Women (ED) Referrals: Silviano Pires MD [Primary Care Provider] - If Needed Additional Instructions: URINE TEST NEGATIVE. URINE DID HAVE SOME BACTERIA IN IT SO WILL TREAT FOR UTI WITH MACROBID. TAKE FOR THE FULL 7 DAYS. STAY WELL HYDRATED. SPECIMEN WILL BE SENT FOR CULTURE. WE WILL CALL YOU IF YOUR TREATMENT NEEDS TO BE CHANGED. IF YOUR SYMPTOMS DO NOT IMPROVE EXPECTED FOLLOW-UP WITH YOUR PCP. - Billing Disposition and Condition Condition: STABLE Disposition: Home
--- NOTE | 2017-09-27 15:01 | UC ---
- Progress Note Progress Note: Urine final with no growth. If feeling better, may continue anbx If not feeling better - needs to f/u with PCP and may stop anbx Discharge - Sign-Out/Discharge Documenting (check all that apply): Post-Discharge Follow Up - Discharge Plan Condition: Stable Disposition: HOME Prescriptions: Nitrofurantoin Macrocrystal [Nitrofurantoin] 100 mg PO BID #14 capsule Patient Education Materials: Urinary Tract Infection in Women (ED) Referrals: Silviano Pires MD [Primary Care Provider] - If Needed Additional Instructions: URINE TEST NEGATIVE. URINE DID HAVE SOME BACTERIA IN IT SO WILL TREAT FOR UTI WITH MACROBID. TAKE FOR THE FULL 7 DAYS. STAY WELL HYDRATED. SPECIMEN WILL BE SENT FOR CULTURE. WE WILL CALL YOU IF YOUR TREATMENT NEEDS TO BE CHANGED. IF YOUR SYMPTOMS DO NOT IMPROVE EXPECTED FOLLOW-UP WITH YOUR PCP. - Billing Disposition and Condition Condition: STABLE Disposition: Home Attestation Statement User Type: Provider - I was available for consult. This patient was seen by the MELO. The patient was not presented to, seen by, or examined by me. -Ashley
== END 2017-09-25 16:58 | disposition home or self-care (01) ==
LOC: UCEAST 15:47
DX: N39.0 Urinary tract infection, site not specified (principal)
CPT/HCPCS: 81003; 84702; 87086; 99212; G0463

== ENCOUNTER 2017-11-11 16:48 | Emergency (ER) | payer BC ==
[2017-11-11] MEDS ORDERED: NS 0.9% 1000 ML* 1,000 ML IV ONE (17:21)
[2017-11-11 18:22] LABS: ABS Basophils 0.1 10^3/ul (0-0.2); ABS Eosinophils 0.2 10^3/ul (0-0.6); ABS Lymphocytes 2.5 10^3/ul (1.0-4.8); ABS Monocytes 0.4 10^3/ul (0-0.8); ABS Neutrophils 4.1 10^3/ul (1.5-7.7); ABS Nucleated RBC 0 10^3/ul; Eosinophil % 2.4 % (0-6); Hematocrit 41 % (35-47); Hemoglobin 13.5 g/dl (12.0-16.0); Lymphocyte % 34.4 % (25-47); Mean Corpuscular HGB Conc 33 g/dl (31-36); Mean Corpuscular Hemoglobin 28 pg (27-31); Mean Corpuscular Volume 83 fL (80-97); Mean Platelet Volume 8.6 um3 (7.4-10.4); Nucleated Red Blood Cells % 0.1; Platelet Count 234 10^3/ul (150-450); Red Blood Count 4.92 10^6/ul (4.00-5.40); Red Cell Distribution Width 14 % (10.5-15); White Blood Count 7.2 10^3/ul (3.5-10.8)
[2017-11-11 18:39] LABS: EGFR Non-African American 103.8 (>60)
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
[2017-11-11 19:20] VITALS: BP 138/75
== END 2017-11-11 19:19 | disposition home or self-care (01) ==
LOC: ED 16:48
DX: R55 Syncope and collapse (principal); R42 Dizziness and giddiness
CPT/HCPCS: 36415; 80048; 84702; 85025; 93005; 96360; 99282

== ENCOUNTER 2018-04-01 18:40 | Emergency (ER) | payer SELFPAY ==
[2018-04-01 19:06] VITALS: BP 148/90
--- NOTE | 2018-04-01 19:09 | UC ---
Respiratory Complaint HPI - HPI Summary HPI Summary: 28 y/o female presents to the urgent care c/o nasal congestion w/ yellowish nasal discharge and sinus pain for the past week. symptoms worsen yesterday when she developed low grade fever, chest congestion and dry cough w./ a lot of PND, body aches and NG. Pt took Nyquill PO w/o any improvement, other than raising her heart. Pt couldn't sleep yesterday due to the cough. sinus pain is 4 /10. Pt denies SOB, chest pain, wheezing, abdominal pain, N/V/D. - History of Current Complaint Chief Complaint: UCRespiratory Stated Complaint: COUGH,FEVER Time Seen by Provider: 04/01/18 19:08 Hx Obtained From: Patient Hx Last Menstrual Period: [id number] Onset/Duration: Gradual Onset, Lasting Weeks - 1 week, Still Present, Worse Since - yesterday Timing: Intermittent Episodes Severity Initially: Mild Severity Currently: Moderate Pain Intensity: 7 Pain Scale Used: 0-10 Numeric Character: Cough: Nonproductive Aggravating Factors: Recumbent Position Alleviating Factors: OTC Meds - Nyquill PO Associated Signs And Symptoms: Positive: Fever, Chills, URI, Nasal Congestion, Sinus Discomfort. Negative: Wheezing - Risk Factors Pulmonary Embolism Risk Factors: Negative Cardiac Risk Factors: Negative Pseudomonas Risk Factors: Negative Tuberculosis Risk Factors: Negative - Allergies/Home Medications Allergies/Adverse Reactions: Allergies Allergy/AdvReac Type Severity Reaction Status Date / Time lamotrigine [From Lamictal] Allergy Rash Verified 04/01/18 19:06 prednisone Allergy Nausea And Verified 04/01/18 19:06 Vomiting tramadol [From Ultram] Allergy Rash Verified 04/01/18 19:06 Home Medications: Home Medications Vit37/Iron/Folic Acid [P[place]ata Chewable Tablet] 1 chw PO DAILY [History Confirmed 04/01/18] PMH/Surg Hx/FS Hx/Imm Hx Previously Healthy: Yes Respiratory History: Asthma Psychological History: Anxiety, Depression, Bipolar Disorder Other History Of: Negative For: Anticoagulant Therapy - Surgical History Surgical History: Yes Surgery Procedure, Year, and Place: laparoscopy [facility]. tonsillectomy. wrist surgery R - Family History Known Family History: Positive: Unknown - Pt was adopted Family History: Depression, Anxiety - Social History Occupation: Employed Full-time Lives: With Family Alcohol Use: Rare Substance Use Type: None Smoking Status (MU): Never Smoked Tobacco Have You Smoked in the Last Year: No - Immunization History Most Recent Influenza Vaccination: Unknown Most Recent Pneumonia Vaccination: Unknown Review of Systems All Other Systems Reviewed And Are Negative: Yes Constitutional: Positive: Fever, Chills, Other - body ahces Skin: Positive: Negative Eyes: Positive: Negative ENT: Positive: Nasal Discharge - yellowish, Sinus Congestion, Sinus Pain/ Tenderness, Other - yellowish PND Respiratory: Positive: Cough - dry Cardiovascular: Positive: Negative Gastrointestinal: Positive: Negative Genitourinary: Positive: Negative Motor: Positive: Negative Neurovascular: Positive: Negative Musculoskeletal: Positive: Negative Neurological: Positive: Negative Psychological: Positive: Negative Is Patient Immunocompromised?: No Physical Exam - Summary Physical Exam Summary: Vitals: reviewed General: Well developed, well-nourished obese female patient with NAD. Head and face: Normocephalic and atraumatic, Positive tenderness over the frontal and maxillary sinuses.. Eyes: PERRLA, EOMI x 2. Normal conjunctiva. No eye discharge. ENT: Ears and TM with normal limits. Nose: edematous and erythematous nasal mucosa with with yellowish discharge and erythematous mucosa. Pharynx with erythema, no exudate. +moderate yellowish PND Neck: Supple, no JVD, no carotid bruits and no lymphadenopathy. Lungs: clear, no rales, no rhonchi, no wheezes. CVS: RRR, S1 and S2 present no murmurs or gallops appreciated. Abdomen: soft nontender with positive bowel sounds. Extremities: no edema noted. Neuro: WNL. Skin: warm and dry Triage Information Reviewed: Yes Vital Signs: Initial Vital Signs Temp 99.0 F 04/01/18 19:00 Pulse 120 04/01/18 19:00 Resp 16 04/01/18 19:00 BP 148/90 04/01/18 19:00 Pulse Ox 100 04/01/18 19:00 UC Diagnostic Evaluation - Laboratory O2 Sat by Pulse Oximetry: 100 Respiratory Course/Dx - Course Course Of Treatment: 28 y/o female presents to the urgent care c/o nasal congestion w/ yellowish nasal discharge and sinus pain for the past week. symptoms worsen yesterday when she developed low grade fever, chest congestion and dry cough w./ a lot of PND, body aches and NG. Pt took Nyquill PO w/o any improvement, other than raising her heart. Pt couldn't sleep yesterday due to the cough. sinus pain is 4/10. Pt denies SOB, chest pain, wheezing, abdominal pain, N/V/D. Hx obtained. Pt w/ acute bacterial sinusitis , lungs are clear B/L , O2Sat: 100%. Pt states she has Hx of anxiety and her HR gets elevated when she take Nyquill PO. Rapid influenza A&B: negative. Pt with 2 weeks of symptoms getting worse. Pt Rx Augmentin PO , Tessalon PO for cough, Ibuprofen PO to alelviate symptoms. Discharge instructions explained to Pt. Advised to Return to the clinic or PCP in 3 days if symptoms do not improve. Pt's BP is elevated today advised to decrease salt in diet, monitor BP and f/u with PCP for further management. D/C instructions explained. Pt understood and agreed with plan of care. - Differential Dx/Diagnosis Differential Diagnosis/HQI/PQRI: Bronchitis, Influenza, Laryngitis, Lower Resp Infection, Sinusitis, Other - pneumonia Provider Diagnosis: Acute bacterial sinusitis, Elevated BP without diagnosis of hypertension, Cough Discharge - Sign-Out/Discharge Documenting (check all that apply): Patient Departure - d/c home All imaging exams completed and their final reports reviewed: No Studies - Discharge Plan Condition: Stable Disposition: HOME Prescriptions: Amoxicillin/Clavulanate TAB* [Augmentin TAB 875*] 875 mg PO BID #20 tab Benzonatate CAP* [Tessalon 100 MG CAP*] 100 mg PO TID #21 cap Fluconazole 150 MG TAB* [Diflucan 150 MG TAB*] 150 mg PO ED ONCE #1 tablet Ibuprofen TAB* [Motrin TAB* 600 MG] 600 mg PO Q6H PRN #30 tab PRN Reason: Pain Patient Education Materials: Sinusitis (ED) Forms: *Work Release Referrals: Silviano Pires MD [Primary Care Provider] - 2 Days Additional Instructions: 1- Please take the full course of the antibiotic to avoid resistance. Take yogurt with probiotics to protect your GI system 2-Please take ibuprofen PO q6-8hrs prn as instructed after meals to alleviate pain and fever. Increase fluid intake, eat well, rest and avoid strenuous exercise 3- Take Tessalon tabs PO as directed to alleviate cough. 4-If symptoms do not improve or worsen please return to the urgent care or f/u with your PCP in 3 days for further evaluation and treatment. 5- Your BP is elevated today. please decrease salt in your diet, monitor BP and if it continues to be elevated please f/u with your PCP for further management. - Billing Disposition and Condition Condition: STABLE Disposition: Home
[2018-04-01 19:36] LABS: Influenza A Molecular NEGATIVE (Negative); Influenza B Molecular NEGATIVE (Negative)
== END 2018-04-01 20:00 | disposition home or self-care (01) ==
LOC: UCEAST 18:40
DX: J01.90 Acute sinusitis, unspecified (principal); R05 Cough; R03.0 Elevated blood-pressure reading, without diagnosis of hypertension; Z88.5 Allergy status to narcotic agent; Z88.8 Allergy status to other drugs, medicaments and biological substances
CPT/HCPCS: 99212; G0463